=== PATIENT | female | born 1940 | race Caucasian/White ===

== ENCOUNTER → 2018-01-23 10:27 | Outpatient (CLI) | payer MEDICARE, SELFPAY ==
--- NOTE | 2018-01-23 10:40 | XR_ITS ---
XR knee RT 3V HISTORY: Right knee pain ITS.REASON: INJURY OF RT KNEE ORDERING PHYSICIAN: Nannette Ann PATIENT AGE: 77 years COMPARISON: None FINDINGS: No fracture or dislocation. No lytic or blastic change. Normal mineralization. Mild osteoarthritic changes are present involving all 3 compartments. There is slight increased density in the suprapatellar region suggesting small effusion. 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
== END ==
PROVIDERS: PCP Nurse Practitioner Family; Visit Provider Nurse Practitioner Family
DX: S89.91XA Unspecified injury of right lower leg, initial encounter (principal)
CPT/HCPCS: 73562

== ENCOUNTER → 2018-02-03 15:04 | Outpatient (CLI) | payer MEDICARE, SELFPAY ==
--- NOTE | 2018-02-03 15:08 | MR_ITS ---
MR knee RT wo con Ordering Physician: Nannette Ann Patient Age: 77 years: Female HISTORY: ITS.REASON: FLUID IN RIGHT KNEE JOINT Knee pain 2 months Prior study states Right knee injury on 01/20/2018. Knee popped when she rolled over in bed with pain developing medial side of the knee extending to the thigh and down the toes. TECHNIQUE: Multiplanar multisequence imaging on 1.5 T MR. Motion artifact degrades images particularly the coronal STIR sequence,. This limits the study somewhat COMPARISON : Right knee radiograph 01/23/2018. FINDINGS The ACL and PCL appear intact. The medial and lateral collateral ligaments intact Early degenerative arthritic changes at the knee with developing tricompartmental marginal osteophytes. . Likely some early chondral thinning, scuffing at particularly the medial femoral condyle Lateral Meniscus. ... Suspect there is a minimal superior surface tear at the anterior horn, sagittal image 8.. There is intrameniscal degenerative signal changes throughout the anterior horn as well. ... On coronal T1 images of body of the medial meniscus has a very lion appearance. The coronal. STIR images are limited but I suspect between these areas likely is a minimal free margin fraying/minor tear at the body of lateral meniscus along superior surface. .... Increased signal at the towards the posterior meniscal root region suspect for possible tear here. Sagittal slice 10 . Medial Meniscus: . No prominent findings with there are some subtle observations. ... Increased signal at superior body of medial meniscus. Likely reflecting minimal fraying or tear here but. Findings are equivocal in part due to the poor resolution due to motion.. ... Increased intrameniscal signal at the posterior horn reflecting mucoid degeneration ... Small focus of increased signal at superior surface of posterior horn near its its transition towards the posterior meniscal root. Suspect for of minimal superior surface tear posterior horn on sagittal slice 16 Moderate/generous joint effusion most evident at suprapatellar bursa. Patellofemoral joint,: normal relationships. Cartilage along posterior patella fairly well-maintained.. Only small focus of slight increased cartilage signal at mid patella suggesting small chondral irregularity here. Mild marginal osteophytes and sharpening along the margin of patella reflect early degenerative change. There are a few scattered areas of increased bone towards the inferior aspect femoral trochlear groove noted. Likely reflecting some scattered osteochondral irregularities and degenerative changes related to patellofemoral joint. Note [id number] superficial varicosities about the knee. There is some increased signal at the popliteal artery and vein. Questionable, doubtful significance. If there should be some at the lower leg lower extremity venous study may be of benefit as well IMPRESSION: ...... 1./. Moderate/generous Joint effusion most evident at suprapatellar bursa. 2.. Developing arthritic changes right knee- tricompartmental ... Likely some minor chondral thinning and scuffing most notable at medial compartment ... A few tiny osteochondral irregularities along femoral trochlear groove 3.. Suspect Small Meniscal Tears.: Most notable at lateral meniscus, with minor areas at at medial meniscus suspect as well. ... Lateral Meniscal Tear,... Most suspect involving superior surface anterior horn Also with this question with this possible displaced meniscal fragment near the anterior meniscal root, & adjacent to tibial spine, (sagittal slice 11.) Curious feature, vs possible unusually prominent anterior meniscal root Questionable area tear at the posterior meniscal root lateral meniscus and fraying at bod
== END ==
PROVIDERS: PCP Nurse Practitioner Family; Visit Provider Nurse Practitioner Family
DX: M25.461 Effusion, right knee (principal)
CPT/HCPCS: 73721

== ENCOUNTER 2020-11-17 14:05 | Inpatient (IN) | payer MEDICARE, SELFPAY ==
[2020-11-17 14:07] VITALS: BP 102/62; PULSE 78; RESP 16; TEMP 36.9; O2SAT 88; BMI 32.2
--- NOTE | 2020-11-17 14:28 | ECG_ITS ---
APPROVED REPORT Exam: Resting ECG HR:79 bpm ECG Measurements Heart Rate 79 AXES NV 130 P 4 QRSd 86 QRS -5 QT 380 T 11 QTc 435 Conclusion Normal sinus rhythm Possible Anterior infarct, age undetermined Abnormal ECG Electronically signed by : Brandon Alston, 11/18/2020 08:47:51
[2020-11-17 14:39] VITALS: BMI 32.2
--- NOTE | 2020-11-17 14:39 | XR_ITS ---
PROCEDURE: XR CHEST PORTABLE CLINICAL HISTORY: weakness, covid + COMPARISON: No exams were available for comparison FINDINGS: The cardiomediastinal silhouette and pulmonary vascularity are within normal limits. There is patchy ground-glass density in the right midlung laterally and in both lower lobes consistent with bilateral pneumonia. No effusions. No acute bony findings. No acute bony abnormalities. IMPRESSION: Bilateral pneumonia suspect Covid19 Dictated by: Ricci Shetty MD 11/17/2020 15:51 Ricci Shetty MD in [place] 11/17/2020 15:51
[2020-11-17 14:55] LABS: Chloride 94 mmol/L (98-107)
[2020-11-17 14:56] LABS: Basophils # 0.1 K/mm3 (0-0.2); Basophils % 0.8 % (0.1-2.0); Eosinophils % 0.1 % (0.1-12.0); Hematocrit 41.6 % (37.0-47.0); Hemoglobin 14.3 g/dL (12.2-16.2); Lymphocytes # 1.3 K/mm3 (0.7-4.5); Lymphocytes % 21.9 % (10-50); Mean Corpuscular HGB Conc 34.3 g/dL (31.8-35.4); Mean Corpuscular Hemoglobin 29.6 pg (27.0-31.2); Mean Corpuscular Volume 86.1 fl (81-99); Mean Platelet Volume 9.3 fl (7.4-10.4); Monocytes # 0.2 K/mm3 (0.1-1.0); Monocytes % 3.6 % (1.7-9.3); Neutrophils # 4.3 K/mm3 (1.8-7.8); Neutrophils % 73.6 % (37.0-80.0); Platelet Count 193 K/mm3 (142-424); Potassium 3.2 mmoL/L (3.5-5.1); Red Blood Count 4.83 M/mm3 (4.20-5.40); Red Cell Distribution Width 12.6 % (11.5-17.5); Sodium 130 mmol/L (136-145); White Blood Count 5.8 K/mm3 (4.8-10.8)
[2020-11-17 14:59] LABS: Alanine Aminotransferase 49 U/L (12-78); Albumin Level 4.4 g/dl (3.5-5.0); Albumin/Globulin Ratio 1.3 (1.1-1.8); Alkaline Phosphatase 72 U/L (38-126); Anion Gap 14.2 mEq/L (5-15); Aspartate Amino Transferase 88 U/L (14-36); Bilirubin,Total 0.9 mg/dl (0.2-1.3); Blood Urea Nitrogen 38 mg/dl (7-17); Calcium 8.9 mg/dl (8.4-10.2); Carbon Dioxide 25 mmol/L (22.0-30.0); Creatinine Clearance Estimated 43 mL/min (50-200); Estimated Glomerular Filt Rate 43 ml/min (>60); GFR (African American) 52 ML/MIN (>60); Globulin 3.5 g/dL (1.3-3.2); Glucose 144 mg/dl (74-100); Total Protein,Serum 7.9 g/dl (6.3-8.2)
[2020-11-17 15:00] VITALS: BP 126/74; PULSE 71; RESP 18; O2SAT 97
[2020-11-17 15:01] LABS: ABG Base Excess 0.7 mmol/L (-2.4-2.3); ABG Oxygen Saturation 92 % (90-100); ABG PCO2 31.8 mmhg (35.0-45.0); ABG PO2 59.9 mmhg (80-100); ABG TCO2 24.9 mmhg (23-27)
[2020-11-17 15:03] LABS: Allen's Test Acceptable; Oxygen Room Air %; Source Right Radial
[2020-11-17 15:11] LABS: Troponin I 0.02 ng/ml (0.00-0.034)
[2020-11-17 16:37] LABS: Lactic Acid 1.7 mmol/L (0.7-2.1)
--- NOTE | 2020-11-17 17:31 | HMH.EDGENADL ---
ED Disposition Clinical Impression: Pneumonia due to COVID-19 virus Disposition: Admitted As Inpatient Condition on Discharge: Fair Referrals: Yasmany Carrera MD [Primary Care Provider] - Time of Disposition: 17:44 - Critical Care Critical Care Time: No Attestation: On 11/17/20, the high probability of a clinically significant, sudden or life threatening deterioration of the following system(s) required my full and direct attention, intervention and personal management. The time I documented below is in addition to time spent performing reported procedures but includes the following listed in this critical care notation. Medical Decision Making - Medical Records Medical records reviewed: Yes: I reviewed the patient's medical records. MR Comment: Shows bilateral pneumonia consistent with the Covid electrolytes are essentially within normal limits CBC is within normal limits ABG shows PO2 59.2 other findings are essentially normal lactic acid is 1.7 oxygen saturation on arrival was 88% with 3 L it goes up to 97% spoke to Dr. Brandon Zhang he has advised that the patient may be admitted and be put on dexamethasone remdesivir vitamin D and IV fluids - Oscar Inquiry Pt receiving controlled substance: No Vital Signs: 11/17/20 14:07 11/17/20 15:00 Temperature 98.4 F Temperature Source Oral Pulse Rate 71 Pulse Rate [Right Radial] 78 Respiratory Rate 16 18 Blood Pressure 126/74 Blood Pressure [Right Arm] 102/62 L Blood Pressure Mean [Right Arm] 75 Blood Pressure Source [Right Arm] Automatic Cuff Blood Pressure Position [Right Arm] Sitting 02 Sat by Pulse Oximetry 88 L 97 Oxygen Delivery Method Room Air Nasal Cannula Oxygen Flow Rate (LPM) 2 - Lab Data Lab results reviewed: Yes: I reviewed the patient's lab results. Lab Results 11/17/20 14:35: WBC 5.8, RBC 4.83, Hgb 14.3, Hct 41.6, MCV 86.1, MCH 29.6, MCHC 34.3, RDW 12.6, Plt Count 193, MPV 9.3, Neut % (Auto) 73.6, Lymph % (Auto) 21.9, [place] % (Auto) 3.6, Eos % (Auto) 0.1, Baso % (Auto) 0.8, Neut # (Auto) 4.3, Lymph # (Auto) 1.3, [place] # (Auto) 0.2, Eos # (Auto) 0.0, Baso # (Auto) 0.1 11/17/20 14:35: Sodium 130 L, Potassium 3.2 L, Chloride 94 L, Carbon Dioxide 25, Anion Gap 14.2, BUN 38 H, Creatinine 1.20 H, Estimated Creat Clear 43, Estimated GFR 43 L, Est GFR ( Amer) 52 L, Glucose 144 H, Calcium 8.9, Total Bilirubin 0.9, AST 88 H, ALT 49, Alkaline Phosphatase 72, Troponin I 0.02, Total Protein 7.9, Albumin 4.4, Globulin 3.5 H, Albumin/Globulin Ratio 1.3 11/17/20 14:35: Lactate 1.7 11/17/20 14:39: Specimen Source Right radial, O2 % Room air, ABG pH 7.50 H, ABG pCO2 31.8 L, ABG pO2 59.9 L, ABG HCO3 24.0, ABG Total CO2 24.9, ABG O2 Saturation 92, ABG Base Excess 0.7, Ricci Test Acceptable Result diagrams: 11/17/20 14:35 11/17/20 14:35 Orders (Tests/Meds): ORDERS Category Date Time Status Covid-19 Nasal PCR ([facility]) Routine Lab 11/17/20 15:10 Received Troponin I Q3H Lab 11/17/20 17:45 Ordered Troponin I Q3H Lab 11/17/20 20:45 Ordered Blood Culture Stat Micro 11/17/20 14:35 Received General Adult HPI - General Chief complaint: Weakness Stated complaint: Covid+, weakness Time Seen by Provider: 11/17/20 14:31 Mode of Arrival: Ambulatory Source of Information: Patient Limitations: No Limitations Description of Symptoms (Recalled from ER Triage Doc. by RN): Pt reports tested positive for covid 19 on tuesday of last week. Presents today c/o generalized weakness. Pt denies SOA. - History of Present Illness HPI narrative: female here with her daughter with a complaint that she was feeling tired and oxygen saturation was dropping she has recently been diagnosed with Covid pneumonia her past medical history significant for hypertension hypercholesterolemia otherwise she does well according to her daughter MD complaint: hypoxemia Onset (ago): hour(s) Severity: moderate Severity scale (1-10): 3 Consistency: constant Exacerbati
--- NOTE | 2020-11-17 17:43 | PC.NURSE ---
Called soda dry house operator for a bed, she advised we will have to board pt till at least 7 .
[2020-11-17 19:00] VITALS: BP 166/92; PULSE 84; O2SAT 95
[2020-11-17 20:02] VITALS: BP 156/90; PULSE 84; O2SAT 93
[2020-11-17 21:16] VITALS: BP 146/68; PULSE 83; RESP 20; TEMP 36.8; O2SAT 93
[2020-11-17 22:00] VITALS: O2SAT 92
[2020-11-17 22:12] LABS: Alanine Aminotransferase 42 U/L (12-78); Albumin Level 3.8 g/dl (3.5-5.0); Albumin/Globulin Ratio 1.3 (1.1-1.8); Alkaline Phosphatase 73 U/L (38-126); Anion Gap 10.6 mEq/L (5-15); Aspartate Amino Transferase 65 U/L (14-36); Bilirubin,Total 0.7 mg/dl (0.2-1.3); Blood Urea Nitrogen 27 mg/dl (7-17); Calcium 8.5 mg/dl (8.4-10.2); Carbon Dioxide 27 mmol/L (22.0-30.0); Chloride 98 mmol/L (98-107); Creatinine Clearance Estimated 51 mL/min (50-200); Estimated Glomerular Filt Rate 53 ml/min (>60); GFR (African American) 64 ML/MIN (>60); Glucose 142 mg/dl (74-100); Sodium 133 mmol/L (136-145); Total Protein,Serum 6.8 g/dl (6.3-8.2)
[2020-11-17 22:20] LABS: Potassium 2.6 mmoL/L (3.5-5.1)
--- NOTE | 2020-11-17 23:10 | PC.NURSE ---
2212 paged second grade teacher [address] Zhang new orders received.
[2020-11-18] VITALS: BP 111/65; PULSE 85; RESP 18; O2SAT 93
--- NOTE | 2020-11-18 04:40 | PC.NURSE ---
shift summary pts lung sounds are diminished with sats maintained 90% or above on 2lpm via NC. pt is aert and oriented X4. pt is able to stand and take a few steps to the bedside commode with assist X1. pt denies nausea, vomiting, diarrhea, or any SOB.
[2020-11-18 06:10] LABS: Basophils # 0.1 K/mm3 (0-0.2); Eosinophils % 0.1 % (0.1-12.0); Hematocrit 38.4 % (37.0-47.0); Hemoglobin 13.2 g/dL (12.2-16.2); Lymphocytes # 1.2 K/mm3 (0.7-4.5); Lymphocytes % 19.7 % (10-50); Mean Corpuscular HGB Conc 34.4 g/dL (31.8-35.4); Mean Corpuscular Hemoglobin 29.5 pg (27.0-31.2); Mean Corpuscular Volume 85.6 fl (81-99); Mean Platelet Volume 8.3 fl (7.4-10.4); Monocytes # 0.2 K/mm3 (0.1-1.0); Monocytes % 3.3 % (1.7-9.3); Neutrophils # 4.7 K/mm3 (1.8-7.8); Neutrophils % 75.8 % (37.0-80.0); Platelet Count 195 K/mm3 (142-424); Red Blood Count 4.48 M/mm3 (4.20-5.40); Red Cell Distribution Width 12.8 % (11.5-17.5); White Blood Count 6.2 K/mm3 (4.8-10.8)
[2020-11-18 06:19] LABS: Alanine Aminotransferase 43 U/L (12-78); Albumin Level 3.8 g/dl (3.5-5.0); Albumin/Globulin Ratio 1.2 (1.1-1.8); Alkaline Phosphatase 70 U/L (38-126); Anion Gap 11.1 mEq/L (5-15); Aspartate Amino Transferase 63 U/L (14-36); Bilirubin,Total 0.6 mg/dl (0.2-1.3); Blood Urea Nitrogen 20 mg/dl (7-17); Calcium 8.6 mg/dl (8.4-10.2); Carbon Dioxide 28 mmol/L (22.0-30.0); Chloride 99 mmol/L (98-107); Creatinine Clearance Estimated 51 mL/min (50-200); Estimated Glomerular Filt Rate 53 ml/min (>60); GFR (African American) 64 ML/MIN (>60); Globulin 3.1 g/dL (1.3-3.2); Glucose 133 mg/dl (74-100); Potassium 3.1 mmoL/L (3.5-5.1); Sodium 135 mmol/L (136-145); Total Protein,Serum 6.9 g/dl (6.3-8.2)
--- NOTE | 2020-11-18 06:57 | HMH.HP ---
*Admission Date: 11/17/20 *Chief complaint: Weakness *History of present illness: 80-year-old female presented to the emergency department last night with a known diagnosis of COVID-19 infection. Last Tuesday patient developed diarrhea. On Tuesday it was discovered that she had had a close contact who tested positive for Covid and she herself was advised to get tested. Patient was tested at the [facility]. Patient's test was positive. Her diarrhea persisted and she became more weak. She denies any respiratory symptoms although nurse notes coughing overnight. Her weakness progressed to the point where she sought treatment at the emergency department. In the emergency department the patient was found to be hypoxic which responded well to application of oxygen via nasal cannula. Chest x-ray confirmed the presence of infiltrates. The patient was also hypokalemic. Decision was made to admit the patient for treatment of COVID-19 pneumonia and respiratory failure. This morning the patient requests discharge to home despite her continued weakness. Nursing staff reports patient required 1 person assist for transfers [facility] History I have reviewed the patient's past medical history: Yes Medical History: Reports:: Hyperlipidemia, Hypertension *Have you ever received a pneumonia vaccine?: No *Have you received a flu vaccine this season?: No Other Surgeries: Yes: Other (Left hip fracture repair) - *Social History Alcohol Intake: never *Occupational Status:: disabled *Travel in the last 8 weeks: None Family Hx:: Non-contributory Review of Systems - Constitutional Denies anorexia - Eyes Denies blind spots - ENT Denies abnormal hearing - *Cardiovascular Denies chest pain - *Respiratory Denies change in phlegm color, Denies chest congestion, Denies cough, Denies shortness of breath - *Gastrointestinal Denies abdominal pain - *Genitourinary Denies painful urination - *Musculoskeletal Denies abnormal walking - *Neurologic Denies abnormal walking Meds Home Medications Medication Instructions Recorded Confirmed Type Atorvastatin Calcium [Lipitor 40mg 40 mg PO DAILY 11/17/20 11/18/20 History Tab] Benazepril HCl 10 mg PO DAILY 11/17/20 11/18/20 History hydroCHLOROthiazide [HCTZ 25mg 25 mg PO DAILY 11/17/20 11/18/20 History tab] Allergies Allergy/AdvReac Type Severity Reaction Status Date / Time No Known Allergies Allergy Unverified 11/18/20 07:20 Exam Vital signs and Labs for Last 24 Hours: Temp Pulse Resp BP Pulse Ox 98.2 F 85 18 111/65 93 L 11/17/20 21:16 11/18/20 00:00 11/18/20 00:00 11/18/20 00:00 11/18/20 00:00 Laboratory Results - last 24 hr 11/17/20 14:35: WBC 5.8, RBC 4.83, Hgb 14.3, Hct 41.6, MCV 86.1, MCH 29.6, MCHC 34.3, RDW 12.6, Plt Count 193, MPV 9.3, Neut % (Auto) 73.6, Lymph % (Auto) 21.9, [place] % (Auto) 3.6, Eos % (Auto) 0.1, Baso % (Auto) 0.8, Neut # (Auto) 4.3, Lymph # (Auto) 1.3, [place] # (Auto) 0.2, Eos # (Auto) 0.0, Baso # (Auto) 0.1 11/17/20 14:35: Sodium 130 L, Potassium 3.2 L, Chloride 94 L, Carbon Dioxide 25, Anion Gap 14.2, BUN 38 H, Creatinine 1.20 H, Estimated Creat Clear 43, Estimated GFR 43 L, Est GFR ( Amer) 52 L, Glucose 144 H, Calcium 8.9, Total Bilirubin 0.9, AST 88 H, ALT 49, Alkaline Phosphatase 72, Troponin I 0.02, Total Protein 7.9, Albumin 4.4, Globulin 3.5 H, Albumin/Globulin Ratio 1.3 11/17/20 14:35: Lactate 1.7 11/17/20 14:39: Specimen Source Right radial, O2 % Room air, ABG pH 7.50 H, ABG pCO2 31.8 L, ABG pO2 59.9 L, ABG HCO3 24.0, ABG Total CO2 24.9, ABG O2 Saturation 92, ABG Base Excess 0.7, Ricci Test Acceptable 11/17/20 22:00: Sodium 133 L, Potassium 2.6 L*, Chloride 98, Carbon Dioxide 27, Anion Gap 10.6, BUN 27 H D, Creatinine 1.00, Estimated Creat Clear 51, Estimated GFR 53 L, Est GFR ( Amer) 64 D, Glucose 142 H, Calcium 8.5, Total Bilirubin 0.7, AST 65 H D, ALT 42, Alkaline Phosphatase 73, Total P
--- NOTE | 2020-11-18 07:34 | P.CONPHA_ITS ---
[facility] Pharmacy VTE Monitoring - Patient Demographics Admission date: 11/17/20 Report Date: 11/18/20 Time: 07:34 Allergies/Adverse Reactions: Patient Allergies No Known Allergies Allergy (Unverified 11/18/20 07:20) Height: 1.52 m Weight: 74.843 kg Patient Problems: Current Active Problems Pneumonia due to COVID-19 virus (Acute) Essential hypertension (Acute) Hypercholesterolemia (Acute) Acute respiratory failure with hypoxia (Acute) - VTE Risk Labs: VTE Related Lab Results Hgb 13.2 g/dL (12.2-16.2) 11/18/20 05:40 Hct 38.4 % (37.0-47.0) 11/18/20 05:40 Plt Count 195 K/mm3 (142-424) 11/18/20 05:40 BUN 20 mg/dl (7-17) H D 11/18/20 05:40 Creatinine 1.00 mg/dl (0.52-1.04) 11/18/20 05:40 Estimated Creat Clear 51 mL/min (50-200) 11/18/20 05:40 - Prophylaxis VTE Prophylaxis Ordered?: Yes Types of VTE Prophylaxis: IPCS Thigh High, Pharmacological Location of Applied Device: Bilateral Lower Extremeties Pharmacologic Type: Enoxaparin
[2020-11-18 08:00] VITALS: BP 123/66; PULSE 88; RESP 18; TEMP 36.9; O2SAT 90
--- NOTE | 2020-11-18 11:07 | HMH.PHAINT ---
MEDICATION RECONCILIATION COMPLETED ON PATIENT USING EXTERNAL FILL HISTORY FROM PHARMACY. -TASNEEM MAYO, JEAND
[2020-11-18 12:00] VITALS: BP 122/76; PULSE 80; RESP 17; TEMP 37; O2SAT 93
[2020-11-18 12:15] LABS: Procalcitonin 0.188 ng/mL (0.0-2.0)
[2020-11-18 15:28] VITALS: BP 131/83; PULSE 96; RESP 20; TEMP 36.6; O2SAT 90
--- NOTE | 2020-11-18 16:12 | PC.NURSE ---
PT HAS DONE WELL TODAY. SHE IS A&OX4. SHE IS ON 3LNC, O2 SAT HAS REMAINED ABOVE 90%. PT HAS NOT C/O ANY PAIN, N/V, OR SOB. SHE HAD ONE EPISODE OF LOOSE STOOL THIS SHIFT. SHE IS A ONE ASSIST TO BSC. SHE HAS A 20G IN THE RAC WITH NS @ 75ML/HR PER CURRENT ORDER. VSS. CALL LIGHT WITHIN REACH. WILL CONT. TO MONITOR.
[2020-11-18 20:00] VITALS: BP 112/63; PULSE 80; RESP 20; TEMP 36.3; O2SAT 93
[2020-11-18 23:44] VITALS: BP 126/75; PULSE 82; RESP 20; TEMP 36.6; O2SAT 91
[2020-11-19 04:00] VITALS: BP 135/85; PULSE 80; RESP 18; TEMP 36.6; O2SAT 91
--- NOTE | 2020-11-19 04:14 | PC.NURSE ---
pt still on 3LNC. ambulates with assist. pt has had bm x1 this shift. pt has been restless at times and c/o of aching. prn med given. iv patent. call light in reach. vss. will continue to monitor
[2020-11-19 05:21] VITALS: BMI 28.3
[2020-11-19 06:23] LABS: Alanine Aminotransferase 37 U/L (12-78); Albumin Level 3.4 g/dl (3.5-5.0); Albumin/Globulin Ratio 1.1 (1.1-1.8); Alkaline Phosphatase 63 U/L (38-126); Anion Gap 9.2 mEq/L (5-15); Aspartate Amino Transferase 55 U/L (14-36); Bilirubin,Total 0.5 mg/dl (0.2-1.3); Blood Urea Nitrogen 19 mg/dl (7-17); Calcium 8.7 mg/dl (8.4-10.2); Carbon Dioxide 25 mmol/L (22.0-30.0); Chloride 107 mmol/L (98-107); Creatinine Clearance Estimated 45 mL/min (50-200); Estimated Glomerular Filt Rate 69 ml/min (>60); GFR (African American) 83 ML/MIN (>60); Globulin 3.1 g/dL (1.3-3.2); Glucose 129 mg/dl (74-100); Potassium 4.2 mmoL/L (3.5-5.1); Sodium 137 mmol/L (136-145); Total Protein,Serum 6.5 g/dl (6.3-8.2)
[2020-11-19 06:30] LABS: Basophils # 0.1 K/mm3 (0-0.2); Basophils % 0.9 % (0.1-2.0); Hematocrit 36.9 % (37.0-47.0); Lymphocytes # 1.5 K/mm3 (0.7-4.5); Lymphocytes % 24.4 % (10-50); Mean Corpuscular HGB Conc 35.2 g/dL (31.8-35.4); Mean Corpuscular Hemoglobin 29.5 pg (27.0-31.2); Mean Corpuscular Volume 83.9 fl (81-99); Monocytes # 0.4 K/mm3 (0.1-1.0); Monocytes % 6.3 % (1.7-9.3); Neutrophils # 4.3 K/mm3 (1.8-7.8); Neutrophils % 68.4 % (37.0-80.0); Platelet Count 242 K/mm3 (142-424); Red Cell Distribution Width 12.9 % (11.5-17.5); White Blood Count 6.2 K/mm3 (4.8-10.8)
[2020-11-19 06:39] LABS: Procalcitonin 0.177 ng/mL (0.0-2.0)
--- NOTE | 2020-11-19 07:12 | HMH.ACPN2 ---
Internal Medicine - PN: Subj *Date: 11/19/20 *Time: 07:12 Interval history: Patient reports feeling better this morning. No acute events in the last 24 hours. Patient is remained stable per nursing staff. Exam Vital signs and Labs for Last 24 Hours: Temp Pulse Resp BP Pulse Ox 97.9 F 80 18 135/85 91 L 11/19/20 04:00 11/19/20 04:00 11/19/20 04:00 11/19/20 04:00 11/19/20 04:00 Laboratory Results - last 24 hr 11/18/20 05:40: Procalcitonin 0.188 11/19/20 05:35: Sodium 137, Potassium 4.2 D, Chloride 107, Carbon Dioxide 25, Anion Gap 9.2, BUN 19 H, Creatinine 0.80, Estimated Creat Clear 45, Estimated GFR 69, Est GFR ( Amer) 83 D, Glucose 129 H, Calcium 8.7, Total Bilirubin 0.5, AST 55 H, ALT 37, Alkaline Phosphatase 63, Total Protein 6.5, Albumin 3.4 L D, Globulin 3.1, Albumin/Globulin Ratio 1.1 11/19/20 05:35: WBC 6.2, RBC 4.40, Hgb 13.0, Hct 36.9 L, MCV 83.9, MCH 29.5, MCHC 35.2, RDW 12.9, Plt Count 242, MPV 8.0, Neut % (Auto) 68.4, Lymph % (Auto) 24.4, [place] % (Auto) 6.3, Eos % (Auto) 0.0 L, Baso % (Auto) 0.9, Neut # (Auto) 4.3, Lymph # (Auto) 1.5, [place] # (Auto) 0.4, Eos # (Auto) 0.0, Baso # (Auto) 0.1 11/19/20 05:35: Procalcitonin 0.177 I & O for Last 24 hours: Intake & Output 11/16/20 11/17/20 11/18/20 11/19/20 11:59 11:59 11:59 11:59 Intake Total 1320 / 1680 1560 / 1560 Output Total 200 / 200 0 / 0 Balance 1120 / 1480 1560 / 1560 Weight 165 lb 144 lb 4 oz - Constitutional no acute distress - *Routine Respiratory Exam Present: CTA bilaterally - *Routine Cardiovascular Exam Present: RRR - *Routine Abdominal Exam Present: soft, normoactive bowel sounds. Absent: tenderness Assessment and Plan (1) Acute respiratory failure with hypoxia Status: Acute Category: Medical Code(s): J96.01 - Acute respiratory failure with hypoxia (2) Pneumonia due to COVID-19 virus Status: Acute Category: Medical Code(s): U07.1 - COVID-19; J12.82 - Pneumonia due to coronavirus disease 2019 (3) Essential hypertension Status: Acute Category: Medical Code(s): I10 - Essential (primary) hypertension (4) Hypercholesterolemia Status: Acute Category: Medical Code(s): E78.00 - Pure hypercholesterolemia, unspecified - Assessment and plan all Dx Assessment and Plan for all problems:: 1. Continue treatment for COVID-19 pneumonia with Remdesivir and dexamethasone 2. Encourage patient ambulate 3. Incentive spirometry to increase pulmonary toilet.
[2020-11-19 08:00] VITALS: BP 139/75; PULSE 77; RESP 18; TEMP 36.8; O2SAT 91
[2020-11-19 09:09] VITALS: BMI 28.1
[2020-11-19 11:50] VITALS: BP 133/82; PULSE 84; RESP 18; TEMP 36.4; O2SAT 91
--- NOTE | 2020-11-19 14:39 | HMH.PTEV ---
Physical Therapy Evaluation Rehab PT IP Evaluation Start: 11/19/20 12:07 Freq: ONCE Status: Active Protocol: Document 11/19/20 14:35 FAREED (Rec: 11/19/20 14:39 FRAEED [id number]) Subjective/History History History 80-year-old female presented to the emergency department last night with a known diagnosis of COVID-19 infection. Last Tuesday patient developed diarrhea. On Tuesday it was discovered that she had had a close contact who tested positive for Covid and she herself was advised to get tested. Patient was tested at the [facility] . Patient's test was positive . Her diarrhea persisted and she became more weak. She denies any respiratory symptoms although nurse notes coughing overnight. Her weakness progressed to the point where she sought treatment at the emergency department. In the emergency department the patient was found to be hypoxic which responded well to application of oxygen via nasal cannula. Chest x-ray confirmed the presence of infiltrates. The patient was also hypokalemic. Decision was made to admit the patient for treatment of COVID-19 pneumonia and respiratory failure. copied from H&P from Subjective Subjective Pt reports she has no troubles getting around but apologizes for coughing on you Rehab PT IP Eval Objective Appearance Patient Behavior Appropriate,Cooperative Patient Orientation Person,Place,Time Difficulty following instructions none Speech Pattern Clear,Appropriate Ambulation Patient Able to Ambulate Yes Ambulation Observation IP General Gait Pattern Observation Shuffling Step Ambulation Distance (feet) 10 Ambulation Assistive Device None Ambulatio
--- NOTE | 2020-11-19 16:49 | PC.NURSE ---
Assumed care of this pt @ [id number]
[2020-11-19 18:38] VITALS: O2SAT 90
[2020-11-20] VITALS (10 sets, daily range): BP systolic 130–175; BP diastolic 80–97; PULSE 65–87; RESP 16–24; TEMP 36.4–36.9; O2SAT 90–94; BMI 28.2
--- NOTE | 2020-11-20 03:30 | PC.NURSE ---
no acute changes. pt able to get up to bsc with standby assistance. 3LNC in use at this time with o2 sat 92%. vss. slept most of shift. did have some intermittent coughing. call light in reach. will continue to monitor
[2020-11-20 07:08] LABS: Basophils % 0.6 % (0.1-2.0); Hematocrit 37.6 % (37.0-47.0); Hemoglobin 12.7 g/dL (12.2-16.2); Lymphocytes # 1.4 K/mm3 (0.7-4.5); Lymphocytes % 18.2 % (10-50); Mean Corpuscular HGB Conc 33.7 g/dL (31.8-35.4); Mean Corpuscular Hemoglobin 29.5 pg (27.0-31.2); Mean Corpuscular Volume 87.5 fl (81-99); Mean Platelet Volume 8.9 fl (7.4-10.4); Monocytes # 0.5 K/mm3 (0.1-1.0); Monocytes % 7.1 % (1.7-9.3); Neutrophils # 5.7 K/mm3 (1.8-7.8); Neutrophils % 74.1 % (37.0-80.0); Platelet Count 309 K/mm3 (142-424); Red Cell Distribution Width 12.8 % (11.5-17.5); White Blood Count 7.7 K/mm3 (4.8-10.8)
--- NOTE | 2020-11-20 07:12 | HMH.ACPN2 ---
Internal Medicine - PN: Subj *Date: 11/20/20 *Time: 07:12 Interval history: No acute events overnight. O2 sats remained in the low to mid 90s on 3 L of oxygen. Patient believes she is well enough to go home. She denies shortness of breath, even with ambulation. Nursing staff reports decline in O2 sats with ambulation. Exam Vital signs and Labs for Last 24 Hours: Temp Pulse Resp BP Pulse Ox 98.5 F 75 22 156/83 H 92 L 11/20/20 04:00 11/20/20 04:00 11/20/20 04:00 11/20/20 04:00 11/20/20 04:00 I & O for Last 24 hours: Intake & Output 11/17/20 11/18/20 11/19/20 11/20/20 11:59 11:59 11:59 11:59 Intake Total 1320 / 1680 2039 / 2039 2174 / 2174 Output Total 200 / 200 0 / 0 501 / 501 Balance 1120 / 1480 2039 / 2039 1673 / 1673 Weight 165 lb 143 lb 4.807 oz 144 lb 9 oz Microbiology Reports for the Last 24 Hours: Microbiology 11/17/20 14:35 Blood Blood Culture - Preliminary NO GROWTH AFTER 48 HOURS 11/17/20 14:35 Blood Blood Culture - Preliminary NO GROWTH AFTER 48 HOURS Narrative: Patient appears comfortable in bed with no increased work of breathing. Lungs have bibasilar rales and rhonchi. Heart has a regular rate and rhythm. Abdomen is soft. Lower extremities have no edema. Assessment and Plan (1) Acute respiratory failure with hypoxia Status: Acute Category: Medical Code(s): J96.01 - Acute respiratory failure with hypoxia (2) Pneumonia due to COVID-19 virus Status: Acute Category: Medical Code(s): U07.1 - COVID-19; J12.82 - Pneumonia due to coronavirus disease 2019 (3) Essential hypertension Status: Acute Category: Medical Code(s): I10 - Essential (primary) hypertension (4) Hypercholesterolemia Status: Acute Category: Medical Code(s): E78.00 - Pure hypercholesterolemia, unspecified - Assessment and plan all Dx Assessment and Plan for all problems:: 1. DC IV fluids. Continue oxygen support. Patient will ambulate as much as possible today. If she can maintain O2 sats above 90% on 2 to 3 L over the next 24 hours with increased activity consideration will be given to discharge tomorrow
[2020-11-20 07:25] LABS: Alanine Aminotransferase 38 U/L (12-78); Albumin Level 3.4 g/dl (3.5-5.0); Albumin/Globulin Ratio 1.1 (1.1-1.8); Alkaline Phosphatase 63 U/L (38-126); Anion Gap 9.7 mEq/L (5-15); Aspartate Amino Transferase 52 U/L (14-36); Bilirubin,Total 0.5 mg/dl (0.2-1.3); Blood Urea Nitrogen 23 mg/dl (7-17); Calcium 8.7 mg/dl (8.4-10.2); Carbon Dioxide 24 mmol/L (22.0-30.0); Chloride 110 mmol/L (98-107); Creatinine Clearance Estimated 45 mL/min (50-200); Estimated Glomerular Filt Rate 69 ml/min (>60); GFR (African American) 83 ML/MIN (>60); Globulin 3.1 g/dL (1.3-3.2); Glucose 120 mg/dl (74-100); Potassium 4.7 mmoL/L (3.5-5.1); Sodium 139 mmol/L (136-145); Total Protein,Serum 6.5 g/dl (6.3-8.2)
--- NOTE | 2020-11-20 11:34 | PC.NURSE ---
Pt tolerates activity well. She does desat to mid-high 80's and will recover to low 90's w/in about 10 minutes. While ambulating in room pt does not appear to be in any resp distress. Pt denies being SOA during this time as well.
--- NOTE | 2020-11-20 16:06 | PC.NURSE ---
No acute changes this shift. Remains on 2 L O2 per nasal cannula. Lungs diminished TO. HR regular. Abdomen soft, non-tender w/active BS. Has had multiple loose stools this shift. Voiding w/o difficulty. Is independent w/ care. Calls out appropriately. PO intake poor this shift, stating she does not have much of an appetite. Protiein shakes offered to pt or substitution of different food. No needs voiced. She has been on the phone w/ family this shift. Call mookie w/in reach.
[2020-11-21 03:45] VITALS: BP 163/98; PULSE 67; RESP 16; TEMP 36.4; O2SAT 91
--- NOTE | 2020-11-21 03:49 | PC.NURSE ---
NO acute changes overnight. PT has rested well this shift. Lungs diminished, on 2L NC tolerating well, sats 92-94. Pt has been getting up to BSC with standby assist, tolerating well. No c/o SOA or pain this shift. Pt has been independent with care. IV patent, SL. VSS, call light in reach, no concerns at this time.
[2020-11-21 05:00] VITALS: BMI 28.3
[2020-11-21 06:22] LABS: Basophils # 0.1 K/mm3 (0-0.2); Basophils % 0.5 % (0.1-2.0); Eosinophils % 0.1 % (0.1-12.0); Hematocrit 39.4 % (37.0-47.0); Hemoglobin 13.5 g/dL (12.2-16.2); Lymphocytes # 1.5 K/mm3 (0.7-4.5); Lymphocytes % 16.5 % (10-50); Mean Corpuscular HGB Conc 34.2 g/dL (31.8-35.4); Mean Corpuscular Hemoglobin 29.6 pg (27.0-31.2); Mean Corpuscular Volume 86.6 fl (81-99); Mean Platelet Volume 8.6 fl (7.4-10.4); Monocytes # 0.6 K/mm3 (0.1-1.0); Neutrophils # 7.1 K/mm3 (1.8-7.8); Platelet Count 369 K/mm3 (142-424); Red Blood Count 4.55 M/mm3 (4.20-5.40); Red Cell Distribution Width 12.6 % (11.5-17.5); White Blood Count 9.2 K/mm3 (4.8-10.8)
[2020-11-21 06:32] LABS: Alanine Aminotransferase 56 U/L (12-78); Albumin Level 3.6 g/dl (3.5-5.0); Albumin/Globulin Ratio 1.1 (1.1-1.8); Alkaline Phosphatase 72 U/L (38-126); Anion Gap 12.9 mEq/L (5-15); Aspartate Amino Transferase 87 U/L (14-36); Bilirubin,Total 0.5 mg/dl (0.2-1.3); Blood Urea Nitrogen 21 mg/dl (7-17); Calcium 8.9 mg/dl (8.4-10.2); Carbon Dioxide 20 mmol/L (22.0-30.0); Chloride 110 mmol/L (98-107); Creatinine Clearance Estimated 45 mL/min (50-200); Estimated Glomerular Filt Rate 80 ml/min (>60); GFR (African American) 97 ML/MIN (>60); Globulin 3.2 g/dL (1.3-3.2); Glucose 121 mg/dl (74-100); Potassium 4.9 mmoL/L (3.5-5.1); Sodium 138 mmol/L (136-145); Total Protein,Serum 6.8 g/dl (6.3-8.2)
--- NOTE | 2020-11-21 07:11 | HMH.DCSUM ---
General - General Admission date:: 11/17/20 Discharge date: 11/21/20 HPI HPI: 80-year-old female presented to the emergency department last night with a known diagnosis of COVID-19 infection. Last Tuesday patient developed diarrhea. On Tuesday it was discovered that she had had a close contact who tested positive for Covid and she herself was advised to get tested. Patient was tested at the [facility]. Patient's test was positive. Her diarrhea persisted and she became more weak. She denies any respiratory symptoms although nurse notes coughing overnight. Her weakness progressed to the point where she sought treatment at the emergency department. In the emergency department the patient was found to be hypoxic which responded well to application of oxygen via nasal cannula. Chest x-ray confirmed the presence of infiltrates. The patient was also hypokalemic. Decision was made to admit the patient for treatment of COVID-19 pneumonia and respiratory failure. This morning the patient requests discharge to home despite her continued weakness. Nursing staff reports patient required 1 person assist for transfers Hospital Course Hospital Course: Patient was admitted with diagnosis of COVID-19 pneumonia and started on supplemental oxygen, Remdesivir, dexamethasone, nutritional supplementation with vitamin D, vitamin C and zinc. Patient remained stable during hospitalization with O2 sats in the low to mid 90s on 2 to 3 L of oxygen via the nasal cannula. Lung exam did have rales and rhonchi that improved during hospitalization and on the day of discharge patient only had faint rhonchi's in the bases. As hospitalization progressed physical therapy was consulted and patient did well with physical therapy and nursing staff reported the day prior to discharge patient was independent in her room. By November 21 patient was remaining stable with stable O2 sats, appropriate level of activity, good appetite and patient was denying weakness. Patient was discharged home. She will continue home oxygen. Patient will be discharged on continued steroids. Patient will follow-up in the office in 1 week Objective Vital signs: Temp Pulse Resp BP Pulse Ox 97.5 F L 67 16 163/98 H 91 L 11/21/20 03:45 11/21/20 03:45 11/21/20 03:45 11/21/20 03:45 11/21/20 03:45 no acute distress - *Routine Neck Exam Present: supple - *Routine Respiratory Exam Present: rhonchi - *Routine Cardiovascular Exam Present: RRR, Normal S1, Normal S2 - *Routine Abdominal Exam Present: soft, normoactive bowel sounds. Absent: tenderness - *Routine Extremities Exam Absent: edema Results Labs on day of discharge: Labs from last 24 hours 11/21/20 11/21/20 11/20/20 05:30 05:30 05:53 WBC 9.2 7.7 RBC 4.55 4.30 Hgb 13.5 12.7 Hct 39.4 37.6 MCV 86.6 87.5 MCH 29.6 29.5 MCHC 34.2 33.7 RDW 12.6 12.8 Plt Count 369 309 D MPV 8.6 8.9 Neut % (Auto) 77.0 74.1 Lymph % (Auto) 16.5 18.2 Edwards % (Auto) 6.0 7.1 Eos % (Auto) 0.1 0.0 L Baso % (Auto) 0.5 0.6 Neut # (Auto) 7.1 5.7 Lymph # (Auto) 1.5 1.4 Edwards # (Auto) 0.6 0.5 Eos # (Auto) 0.0 0.0 Baso # (Auto) 0.1 0.0 Sodium 138 Potassium 4.9 Chloride 110 H Carbon Dioxide 20 L Anion Gap 12.9 BUN 21 H Creatinine 0.70 Estimated Creat Clear 45 Estimated GFR 80 Est GFR ( Amer) 97 Glucose 121 H Calcium 8.9 Total Bilirubin 0.5 AST 87 H D ALT 56 D Alkaline Phosphatase 72 Total Protein 6.8 Albumin 3.6 Globulin 3.2 Albumin/Globulin Ratio 1.1 11/20/20 05:53 WBC RBC Hgb Hct MCV MCH MCHC RDW Plt Count MPV Neut % (Auto) Lymph % (Auto) Edwards % (Auto) Eos % (Auto) Baso % (Auto) Neut # (Auto) Lymph # (Auto) Edwards # (Auto) Eos # (Auto) Baso # (Auto) Sodium 139 Potassium 4.7 Chloride 110 H Carbon Dioxide 24 Anion Gap 9
--- NOTE | 2020-11-21 07:53 | HMH.ACPN ---
Internal Medicine - PN: Subj *Date: 11/21/20 *Time: 07:53 Exam Vital signs and Labs for Last 24 Hours: Temp Pulse Resp BP Pulse Ox 97.5 F L 67 16 163/98 H 91 L 11/21/20 03:45 11/21/20 03:45 11/21/20 03:45 11/21/20 03:45 11/21/20 03:45 Laboratory Results - last 24 hr 11/21/20 05:30: Sodium 138, Potassium 4.9, Chloride 110 H, Carbon Dioxide 20 L, Anion Gap 12.9, BUN 21 H, Creatinine 0.70, Estimated Creat Clear 45, Estimated GFR 80, Est GFR ( Amer) 97, Glucose 121 H, Calcium 8.9, Total Bilirubin 0.5, AST 87 H D, ALT 56 D, Alkaline Phosphatase 72, Total Protein 6.8, Albumin 3.6, Globulin 3.2, Albumin/Globulin Ratio 1.1 11/21/20 05:30: WBC 9.2, RBC 4.55, Hgb 13.5, Hct 39.4, MCV 86.6, MCH 29.6, MCHC 34.2, RDW 12.6, Plt Count 369, MPV 8.6, Neut % (Auto) 77.0, Lymph % (Auto) 16.5, Holt % (Auto) 6.0, Eos % (Auto) 0.1, Baso % (Auto) 0.5, Neut # (Auto) 7.1, Lymph # (Auto) 1.5, Holt # (Auto) 0.6, Eos # (Auto) 0.0, Baso # (Auto) 0.1 I & O for Last 24 hours: Intake & Output 11/18/20 11/19/20 11/20/20 11/21/20 23:59 23:59 23:59 23:59 Intake Total 2400 / 2880 2098 / 2098 1636 / 1636 Output Total 200 / 200 300 / 300 901 / 901 Balance 2200 / 2680 1798 / 1798 735 / 735 Weight 65 kg 65.572 kg 65.6 kg Assessment and Plan (1) Acute respiratory failure with hypoxia Status: Acute Category: Medical Code(s): J96.01 - Acute respiratory failure with hypoxia (2) Pneumonia due to COVID-19 virus Status: Acute Category: Medical Code(s): U07.1 - COVID-19; J12.82 - Pneumonia due to coronavirus disease 2019 (3) Essential hypertension Status: Acute Category: Medical Code(s): I10 - Essential (primary) hypertension (4) Hypercholesterolemia Status: Acute Category: Medical Code(s): E78.00 - Pure hypercholesterolemia, unspecified The patient's infection will respond to the chosen ABx?: Yes (EMPIRIC PNEUMONIA THERAPY) Is the patient receiving the right drug, dose, and route?: Yes Could a more targeted ABx be ordered?: No (CULTURES SHOW NO GROWTH)
[2020-11-21 08:00] VITALS: BP 177/98; PULSE 88; RESP 18; TEMP 36.6; O2SAT 91
[2020-11-21 09:21] VITALS: BP 144/123; PULSE 96; O2SAT 89
--- NOTE | 2020-11-21 09:40 | SW/DCPLANNER ---
SET UP HOME 02 FOR THIS PATIENT THAT IS DISCHARGING HOME TODAY PER DR BRAY.. PATIENT CHOSE [facility].. A PORTABLE WILL BE DELIVERED TO THE HOSPITAL PRIOR TO PATIENT DISCHARGING HOME AND SHE IS TO FOLLOW UP WITH DR BRAY IN THE OFFICE NEXT WEEK...
[2020-11-21 10:09] VITALS: BP 163/103; PULSE 83; O2SAT 90
[2020-11-21 10:10] VITALS: BP 177/98; PULSE 87; O2SAT 89
== END 2020-11-21 12:10 | disposition home or self-care (01) | DRG 177 ==
LOC: ER 17:41 → ICU 22:28 → 2ND 11-18 15:18 → ICU 11-19 17:21
PROVIDERS: Admitting Provider Family Medicine; Emergency Provider Emergency Medicine; PCP Family Medicine; Visit Provider Family Medicine
DX: U07.1 COVID-19 (principal); J12.82 Pneumonia due to coronavirus disease 2019; J96.01 Acute respiratory failure with hypoxia; I10 Essential (primary) hypertension; E78.00 Pure hypercholesterolemia, unspecified; E87.6 Hypokalemia
CPT/HCPCS: 96374; 36415; 71045; 80053; 82803; 83605; 84145; 84484; 85025; 87040; 93005; 94761; 97116; 97162; 97530; 99284; J0456; U0003

== ENCOUNTER 2022-05-04 14:24 | Inpatient (IN) | payer MEDICARE, SELFPAY ==
[2022-05-04] VITALS (7 sets, daily range): BP systolic 110–139; BP diastolic 69–80; PULSE 71–89; RESP 16–18; TEMP 36.7–36.8; O2SAT 92–98; BMI 30.2; BMI 29.4
--- NOTE | 2022-05-04 14:49 | XR_ITS ---
PROCEDURE INFORMATION: Exam: XR Right Hip Exam date and time: 05/04/2022 3:10 PM Age: 81 years old Clinical indication: Injury or trauma; Fall; Blunt trauma (contusions or hematomas); Right; Hip TECHNIQUE: Imaging protocol: Radiologic exam of the Right hip. Views: 2 or 3 views hip with pelvis when performed. COMPARISON: No relevant prior studies available. FINDINGS: Bones/joints: Mildly displaced right femoral intertrochanteric fracture. Status post total left hip arthroplasty. The hardware appears intact. Soft tissues: Unremarkable. IMPRESSION: Mildly displaced right femoral intertrochanteric fracture.
--- NOTE | 2022-05-04 14:58 | PC.NURSE ---
DR. GAUTHIER AT BEDSIDE FOR EVALUATION
--- NOTE | 2022-05-04 15:02 | XR_ITS ---
FINAL REPORT CLINICAL HISTORY: FALL FINDINGS: Right ankle Three views were obtained. There is no acute fracture or dislocation. There are mild degenerative changes. Calcaneal spurs are noted. No soft tissue abnormality is identified. IMPRESSION: No acute process. Reviewed, Interpreted and Dictated by Johnny Gimenez III, MD Transcribed by Isa Alston Authenticated and [facility]
--- NOTE | 2022-05-04 15:02 | XR_ITS ---
FINAL REPORT CLINICAL HISTORY: FALL FINDINGS: RIGHT FEMUR Two views were obtained. There is a comminuted intertrochanteric fracture with coxa vara deformity. There are moderate degenerative changes of the hip. No soft tissue abnormality is seen. 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 Moderate degenerative changes of the hip. Reviewed, Interpreted and Dictated by Johnny Gimenez III, MD Transcribed by Marquita Interiano Authenticated and [facility]
--- NOTE | 2022-05-04 15:02 | XR_ITS ---
FINAL REPORT CLINICAL HISTORY: FALL FINDINGS: Three views of the left knee reveal no evidence of fracture or dislocation. The bony alignment is normal. There are mild degenerative changes. There is no evidence of joint effusion. No localized soft tissue abnormality is seen. IMPRESSION: Mild degenerative change with no acute abnormality identified. Reviewed, Interpreted and Dictated by Johnny Gimenez III, MD Transcribed by Marquita Interiano Authenticated and [facility]
--- NOTE | 2022-05-04 15:14 | PC.NURSE ---
PT TO XR AT THIS TIME PER WC
--- NOTE | 2022-05-04 15:46 | PC.NURSE ---
BACK FROM RADIOLOGY
--- NOTE | 2022-05-04 16:03 | HMH.EDLOEX ---
Discharge Plan Disposition Patient Disposition: Admitted As Inpatient Clinical Impressions Clinical Impression: Closed intertrochanteric fracture of right femur Discharge ED Provider: Talon Rowley Lower Extremity Injury HPI General Chief Complaint: Extremity Injury, Lower Stated Complaint: AO 05/04@home@1400 pain in Rt leg Time Seen by Provider: 05/04/22 14:40 Mode of Arrival: Wheelchair Limitations: No Limitations Description of Symptoms (Recalled from ER Triage Doc. by RN): PT REPORTS FALL GETTING OUT OF VEHICLE, PAIN TO RIGHT LEG History of Present Illness HPI Narrative: Patient is a 81-year-old female who presents with concern for a fall. She states that earlier today around 2:00 she had a ground-level fall. She says that she was not able to walk afterwards and she says that her pain is extreme when she straightens her leg out. She denies any numbness or tingling. She cannot located her pain in any particular area just says that it is her entire right leg. Denies any chest or abdominal pain. Denies any shortness of breath. She did not hit her head. Related Data Home Medications Medication Instructions Recorded Confirmed atorvastatin 40 mg tablet 40 mg PO DAILY Cholesterol 11/17/20 11/18/20 benazepril 10 mg tablet 10 mg PO DAILY Hypertension 11/17/20 11/18/20 hydrochlorothiazide 25 mg tablet 25 mg PO DAILY Fluid 11/17/20 11/18/20 Previous Rx's Medication Instructions Recorded aspirin 325 mg tablet 325 mg PO DAILY #30 tabs 11/21/20 azithromycin 250 mg tablet 250 mg PO DAILY #5 tabs 11/21/20 dexamethasone 6 mg tablet 6 mg PO DAILY #7 tabs 11/21/20 Allergies Allergy/AdvReac Type Severity Reaction Status Date / Time No Known Allergies Allergy Unverified 11/18/20 07:20 PFSH PFS Social History Smoking Status: Never smoker alcohol intake: never current occupational status: disabled Travel in the last 8 weeks: None ROS Obtained: Yes All systems reviewed & no additional complaints except as documented A 14 point review of system was obtained and otherwise negative except per HPI Physical Exam General General appearance: alert and in no apparent distress Head Head exam: atraumatic, normocephalic and normal inspection Eye Eye exam: Present normal appearance, PERRL and EOMI ENT ENT exam: Present normal exam, normal oropharynx, mucous membranes moist, TM's normal bilaterally and normal external ear exam Neck Neck exam: Present normal inspection, full ROM and trachea midline; Absent meningismus or lymphadenopathy Chest Chest inspection: Present normal inspection and symmetric chest wall rise; Absent tenderness Respiratory Respiratory exam: Present normal lung sounds bilaterally; Absent respiratory distress Cardiovascular Cardiovascular exam: Present regular rate and normal rhythm; Absent JVD Abdominal Exam Abdominal exam: Present soft and normal bowel sounds; Absent distention, tenderness or guarding Extremities Exam Extremities exam: Present normal inspection, full ROM and normal capillary refill; Absent calf tenderness Expanded Lower Extremity Exam Right: Hip/Pelvis exam: Present normal inspection and tenderness; Absent full ROM, deformity, external rotation, internal rotation or shortening of leg Back Exam Back exam: Present normal inspection; Absent tenderness Neurological Exam Neurological exam: Present alert and oriented X3 Psychiatric Psychiatric exam: Present normal affect and normal mood Skin Skin exam: Present warm, dry, intact and normal color Lymphatic Lymphatic Findings: no adenopathy Medical Decision Making Medical Records Medical records reviewed: Yes I reviewed the patient's medical records. Oscar Inquiry Pt receiving controlled substance: No Vital Signs: 05/04/22 14:26 Temperature 98.0 F Temperature Source Oral Pulse Rate [Radial] 89 Respiratory Rate 18 Blood Pressure [Right Arm] 125/77 Blood
--- NOTE | 2022-05-04 16:08 | PC.NURSE ---
FAMILY UPDATED AT THIS TIME
[2022-05-04 17:50] LABS: Coronavirus 19, PCR Not Detected (NotDetected); Influenza A, PCR Not Detected (NotDetected); Influenza B, PCR Not Detected (NotDetected)
--- NOTE | 2022-05-04 18:26 | EXP.ORTH.CON ---
History of Present Illness *Admission Date: 05/04/22 *Reason for visit:: Right hip fracture *History of present illness: Patient is a 81-year-old female who presents with concern for a fall. She states that earlier today around 2:00 she had a ground-level fall. She says that she was not able to walk afterwards and she says that her pain is extreme when she straightens her leg out. She denies any numbness or tingling. She cannot located her pain in any particular area just says that it is her entire right leg. Denies any chest or abdominal pain. Denies any shortness of breath. She did not hit her head. X-rays revealed right intertrochanteric hip fracture I was consulted for treatment options. PFSH PFS Social History Smoking Status: Never smoker alcohol intake: never current occupational status: disabled Travel in the last 8 weeks: None Review of Systems Constitutional Constitutional: Denies fever(s) *Cardiovascular Cardiovascular: Denies chest pain with activity and Denies dyspnea *Respiratory Respiratory: Denies dyspnea Meds Home Medications and Allergies Home Medications Medication Instructions Recorded Confirmed Type atorvastatin 40 mg tablet 40 mg PO DAILY Cholesterol 11/17/20 11/18/20 History benazepril 10 mg tablet 10 mg PO DAILY Hypertension 11/17/20 11/18/20 History hydrochlorothiazide 25 mg tablet 25 mg PO DAILY Fluid 11/17/20 11/18/20 History aspirin 325 mg tablet 325 mg PO DAILY #30 tabs 11/21/20 Rx azithromycin 250 mg tablet 250 mg PO DAILY #5 tabs 11/21/20 Rx dexamethasone 6 mg tablet 6 mg PO DAILY #7 tabs 11/21/20 Rx New Prescriptions to Start Prescriptions: Allergies Allergy/AdvReac Type Severity Reaction Status Date / Time No Known Allergies Allergy Unverified 11/18/20 07:20 Ortho Exam (Inpt) Vital signs and Labs for Last 24 Hours: Temp Pulse Resp BP Pulse Ox 98.0 F 89 18 125/77 95 05/04/22 14:26 05/04/22 14:26 05/04/22 14:26 05/04/22 14:26 05/04/22 14:26 Laboratory Results - last 24 hr 05/04/22 17:44: SARS-CoV-2 (PCR) Not detected, Influenza A Untype (PCR) Not detected, Influenza Type B (PCR) Not detected I & O for Labs for Last 24 Hours: Intake & Output 05/01/22 05/02/22 05/03/22 05/04/22 23:59 23:59 23:59 23:59 Weight 165 lb Additional findings:: Right hip: Shortened and externally rotated. Significant pain with any active motion of the hip. Sensations intact. X-rays revealed intertrochanteric hip fracture basicervical type right side Results Labs Labs: All other labs normal. Assessment and Plan *Assessment and plan (1) Closed intertrochanteric fracture of right femur: Status: Acute Category: Medical Code(s): S72.141A - Displaced intertrochanteric fracture of right femur, initial encounter for closed fracture Plan I discussion with the patient regarding treatment options. We will plan on surgical intervention in the morning. Cephalomedullary nailing of the right intertrochanteric hip fracture. Will allow for early ambulation PROPOSED SURGERY: Cephalomedullary nailing right proximal femur the risks and benefits of the proposed surgery were discussed in depth with the patient. Potential complications including inherent risk of anesthesia, infection, neurovascular damage, DVT, and potential loss of limb or life were all reviewed. Patient voices understanding and seems to understand to my satisfaction and wishes to proceed with surgery. I gave them adequate time to ask any questions they have pertaining to this surgery and answered all of them to the best of my ability. I gave them no guarantees in regards to outcomes of this surgery.
--- NOTE | 2022-05-04 19:03 | PC.NURSE ---
Notified house calls nurse of admission.
--- NOTE | 2022-05-04 19:55 | EXP.HP ---
History of Present Illness *Admission Date: 05/04/22 *Reason for visit:: fall *History of present illness: Ms. Hipolito Valdez is an 81-year-old female with a past medical history of HTN, Hyperlipidemia and OA. She presents to the ER today secondary to a ground level fall that occurred just prior to presentation. She reports that she stepped out of her care and her right leg gave, resulting in a fall. She reports that she was unable to bear weight so she came into the ER for evaluation. In the ER, the patient underwent PFSH PFSH Family History (Updated 05/04/22 @ 19:28 by Arabella Birmingham, RN) Other No significant family history Social History (Updated 05/04/22 @ 19:28 by Arabella Birmingham RN) Smoking Status: Never smoker alcohol intake: never current occupational status: disabled Travel in the last 8 weeks: None Meds Home Medications and Allergies Home Medications Medication Instructions Recorded Confirmed Type atorvastatin 40 mg tablet 40 mg PO DAILY Cholesterol 11/17/20 11/18/20 History benazepril 10 mg tablet 10 mg PO DAILY Hypertension 11/17/20 11/18/20 History hydrochlorothiazide 25 mg tablet 25 mg PO DAILY Fluid 11/17/20 11/18/20 History aspirin 325 mg tablet 325 mg PO DAILY #30 tabs 11/21/20 Rx azithromycin 250 mg tablet 250 mg PO DAILY #5 tabs 11/21/20 Rx dexamethasone 6 mg tablet 6 mg PO DAILY #7 tabs 11/21/20 Rx New Prescriptions to Start Prescriptions: Allergies Allergy/AdvReac Type Severity Reaction Status Date / Time No Known Allergies Allergy Unverified 11/18/20 07:20 Exam Data for Last 24 hours Vital signs and Labs for Last 24 Hours: Temp Pulse Resp BP Pulse Ox 98.0 F 89 18 125/77 95 05/04/22 14:26 05/04/22 14:26 05/04/22 14:26 05/04/22 14:26 05/04/22 14:26 Laboratory Results - last 24 hr 05/04/22 17:44: SARS-CoV-2 (PCR) Not detected, Influenza A Untype (PCR) Not detected, Influenza Type B (PCR) Not detected I & O for Last 24 hours: Intake & Output 05/01/22 05/02/22 05/03/22 05/04/22 23:59 23:59 23:59 23:59 Weight 74.843 kg
--- NOTE | 2022-05-04 20:00 | EXP.HP ---
History of Present Illness *Admission Date: 05/04/22 *History of present illness: Ms. Hipolito Valdez is an 81-year-old female with a past medical history of HTN, Hyperlipidemia and OA. She presents to the ER today secondary to a ground level fall that occurred just prior to presentation. She reports that she stepped out of her care and her right leg gave, resulting in a fall. She reports that she was unable to bear weight so she came into the ER for evaluation. In the ER, the patient underwent imaging of the right hip and right femur that showed a communited intertroachanteric fracture with coxa vara deformity. The ER Physician spoke with Orthopaedics, plan is for cephalomedullary nailing of the right intertrochanteric fracture on 05/05. The plan of care to admit and have Orthopaedics consult was discussed with the patient and her daughter at bedside. Both verbalized understanding and agreement with the plan of care. PFSH PFSH Medical History History of COVID-19 History of gastroesophageal reflux (GERD) History of hip fracture Pneumonia Surgical History History of cholecystectomy History of hip replacement History of hysterectomy History of left hip replacement Family History Other Family history of diabetes mellitus type II No significant family history Social History (Updated 05/05/22 @ 08:59 by Alma Barbosa CRNA) Smoking Status: Former smoker alcohol intake: never substance use type: denies use current occupational status: disabled Travel in the last 8 weeks: None Review of Systems Review of Systems Review of systems:: pertinent systems reviewed and negative unless documented below Constitutional Constitutional: Reports body ache(s) Eyes Eyes: Reports system reviewed and no additional complaints, except as documented ENT Ears, Nose, Mouth, and Throat: Reports system reviewed and no additional complaints, except as documented *Cardiovascular Cardiovascular: Reports system reviewed and no additional complaints, except as documented *Respiratory Respiratory: Reports system reviewed and no additional complaints, except as documented *Gastrointestinal Gastrointestinal: Reports system reviewed and no additional complaints, except as documented *Genitourinary Genitourinary: Reports system reviewed and no additional complaints, except as documented *Musculoskeletal Musculoskeletal: Reports abnormal gait, Reports arthralgias, Reports joint swelling and Reports limited range of motion Integumentary/Breasts Skin/Breast: Reports system reviewed and no additional complaints, except as documented *Neurologic Neurologic: Reports system reviewed and no additional complaints, except as documented and Reports abnormal gait Psychiatric Psychiatric: Reports system reviewed and no additional complaints, except as documented Endocrine Endocrine: Reports system reviewed and no additional complaints, except as documented Hematologic/Lymphatic Hematologic/Lymphatic: Reports system reviewed and no additional complaints, except as documented Allergic/Immunologic Allergic/Immunologic: Reports system reviewed and no additional complaints, except as documented Meds Home Medications and Allergies Home Medications Medication Instructions Recorded Confirmed Type atorvastatin 40 mg tablet 40 mg PO DAILY Hyperlipidemia 11/17/20 05/04/22 History benazepril 10 mg tablet 10 mg PO DAILY Hypertension 11/17/20 05/04/22 History hydrochlorothiazide 25 mg tablet 25 mg PO DAILY Edema 11/17/20 05/04/22 History New Prescriptions to Start Prescriptions: Allergies Allergy/AdvReac Type Severity Reaction Status Date / Time No Known Allergies Allergy Unverified 11/18/20 07:20 Exam Data for Last 24 hours Vital signs and Labs for Last 24 Hours: Temp Pulse Resp BP
[2022-05-04 20:39] LABS: Basophils # 0.1 K/mm3 (0-0.2); Basophils % 0.3 % (0.1-2.0); Chloride 97 mmol/L (98-107); Eosinophils % 0.1 % (0.1-12.0); Hematocrit 40.2 % (37.0-47.0); Hemoglobin 13.2 g/dL (12.2-16.2); Lymphocytes # 1.4 K/mm3 (0.7-4.5); Lymphocytes % 10.2 % (10-50); Mean Corpuscular HGB Conc 32.9 g/dL (31.8-35.4); Mean Corpuscular Hemoglobin 30.3 pg (27.0-31.2); Mean Corpuscular Volume 92.2 fl (81-99); Mean Platelet Volume 8.5 fl (7.4-10.4); Monocytes # 0.6 K/mm3 (0.1-1.0); Monocytes % 4.2 % (1.7-9.3); Neutrophils # 11.5 K/mm3 (1.8-7.8); Neutrophils % 85.2 % (37.0-80.0); Platelet Count 261 K/mm3 (142-424); Potassium 3.9 mmoL/L (3.5-5.1); Red Blood Count 4.36 M/mm3 (4.20-5.40); Red Cell Distribution Width 13.1 % (11.5-17.5); Sodium 138 mmol/L (136-145); White Blood Count 13.5 K/mm3 (4.8-10.8)
[2022-05-04 20:42] LABS: Alanine Aminotransferase 30 U/L (12-78); Albumin Level 4.6 g/dl (3.5-5.0); Albumin/Globulin Ratio 1.7 (1.1-1.8); Alkaline Phosphatase 102 U/L (38-126); Anion Gap 14.9 mEq/L (5-15); Aspartate Amino Transferase 39 U/L (14-36); Bilirubin,Total 0.9 mg/dl (0.2-1.3); Blood Urea Nitrogen 16 mg/dl (7-17); Calcium 9.2 mg/dl (8.4-10.2); Carbon Dioxide 30 mmol/L (22.0-30.0); Creatinine Clearance Estimated 50 mL/min (50-200); Estimated Glomerular Filt Rate 69 ml/min (>60); GFR (African American) 83 ML/MIN (>60); Globulin 2.7 g/dL (1.3-3.2); Glucose 143 mg/dl (74-100); Total Protein,Serum 7.3 g/dl (6.3-8.2)
[2022-05-04 20:45] LABS: MANUAL DIFFERENTIAL MANUAL DIFFERENTIAL (MANUAL DIFF)
[2022-05-04 20:59] LABS: Microscopic, Urine URINE MICROSCOPIC (MICROSCOPIC)
[2022-05-04 21:04] LABS: Appearance,Urine CLEAR (Clear); Bilirubin,Urine Negative (Negative); Blood, Urine Negative (Negative); Color,Urine YELLOW (Yellow); Glucose,Urine (UA) Negative (Negative); Ketones,Urine TRACE (Negative); Leukocyte Esterase,Urine TRACE (Negative); Nitrate,Urine Negative (Negative); Protein,Urine Negative (Negative); Urobilinogen,Urine 0.2 EU/dl (0.2)
--- NOTE | 2022-05-04 21:12 | PC.NURSE ---
PT ARRIVED TO [facility] AT 21:04 VIA STRETCHER
[2022-05-04 21:23] LABS: Bacteria,Urine 2+ /lpf; RBC,Urine Occasional #/hpf (0-3)
[2022-05-04 21:45] LABS: Lymphocytes % 11 % (10-50); Neutrophils % 89 % (42-76); Total Cells Counted 100
[2022-05-04 21:46] LABS: Platelet Estimate Normal; Stomatocytes 1+
[2022-05-05] VITALS (21 sets, daily range): BP systolic 89–163; BP diastolic 48–96; PULSE 82–102; RESP 16–22; TEMP 36.6–43; O2SAT 90–95; BMI 29.4
--- NOTE | 2022-05-05 05:27 | PC.NURSE ---
NO ACUTER CHANGES SINCE PREVIOUS ASSESSMENT. LUNG SOUNDS ARE CLEAR BILATERALLY. REMAINS ON ROOM AIR. PT HAS C/O RT HIP PAIN X3 THIS SHIFT AND HAS BEEN MEDICATED PER MAR FOR PAIN WITH MODERATE RELIEF. PT HAS RESTED INTERMITTENTLY. DAUGHTER AT BEDSIDE. PT AND DAUGHTER HAVE ASKED MANY QUESTIONS ON WHEN PT'S PROCEDURE WOULD BE. PT AND FAMILY UPDATED ON PLAN. KRISHNAN IN PLACE DRAINING ADEQUATE AMOUNTS OF URINE. VSS.
[2022-05-05 07:12] LABS: Chloride 98 mmol/L (98-107); Potassium 3.7 mmoL/L (3.5-5.1); Sodium 137 mmol/L (136-145)
[2022-05-05 07:14] LABS: Basophils # 0.1 K/mm3 (0-0.2); Basophils % 0.9 % (0.1-2.0); Eosinophils # 0.1 K/mm3 (0.0-0.4); Eosinophils % 0.8 % (0.1-12.0); Hematocrit 38.5 % (37.0-47.0); Hemoglobin 12.9 g/dL (12.2-16.2); Lymphocytes # 2.2 K/mm3 (0.7-4.5); Lymphocytes % 21.1 % (10-50); Mean Corpuscular HGB Conc 33.4 g/dL (31.8-35.4); Mean Corpuscular Hemoglobin 30.3 pg (27.0-31.2); Mean Corpuscular Volume 90.8 fl (81-99); Mean Platelet Volume 8.3 fl (7.4-10.4); Monocytes # 0.7 K/mm3 (0.1-1.0); Monocytes % 6.4 % (1.7-9.3); Neutrophils # 7.4 K/mm3 (1.8-7.8); Neutrophils % 70.8 % (37.0-80.0); Platelet Count 266 K/mm3 (142-424); Red Blood Count 4.24 M/mm3 (4.20-5.40); Red Cell Distribution Width 12.9 % (11.5-17.5); White Blood Count 10.4 K/mm3 (4.8-10.8)
[2022-05-05 07:15] LABS: Alanine Aminotransferase 29 U/L (12-78); Albumin Level 4.4 g/dl (3.5-5.0); Albumin/Globulin Ratio 1.6 (1.1-1.8); Alkaline Phosphatase 89 U/L (38-126); Anion Gap 13.7 mEq/L (5-15); Aspartate Amino Transferase 38 U/L (14-36); Blood Urea Nitrogen 20 mg/dl (7-17); Calcium 8.7 mg/dl (8.4-10.2); Carbon Dioxide 29 mmol/L (22.0-30.0); Creatinine Clearance Estimated 49 mL/min (50-200); Estimated Glomerular Filt Rate 69 ml/min (>60); GFR (African American) 83 ML/MIN (>60); Globulin 2.7 g/dL (1.3-3.2); Glucose 120 mg/dl (74-100); Total Protein,Serum 7.1 g/dl (6.3-8.2)
--- NOTE | 2022-05-05 07:39 | HMH.PHAINT1 ---
Pharmacy Intervention Comments: Home medication reconciliation completed using outpatient pharmacy medication fill history.
--- NOTE | 2022-05-05 08:47 | PC.NURSE ---
Pt to surgery @ 8016.
--- NOTE | 2022-05-05 08:58 | EXP.ANES.CKL ---
PFSH PFS Medical History History of COVID-19 History of gastroesophageal reflux (GERD) History of hip fracture Pneumonia Surgical History History of cholecystectomy History of hip replacement History of hysterectomy History of left hip replacement Family History Other Family history of diabetes mellitus type II No significant family history Social History Smoking Status: Former smoker alcohol intake: never substance use type: denies use current occupational status: disabled Travel in the last 8 weeks: None [facility] Anesthesia Checklist Patient Identification Patient Identification: Arm Band and Verbal (Name & ) Structural Data Admitted From: Home Planned Operative Procedure/s: Hip nailing Consent for Planned Operative Procedure(s) Verified: Yes NPO Status Verified Time NPO: 00:00 Airway Assessment C-Spine Mobility Assessed: Yes TMJ Mobility Assessed: Yes Dentition: Edentulous Neurological Assessment Level of Consciousness: Awake Hx Seizures: No Numbness or tingling in extremities: No Anesthesia Plan Anesthesia Risk discussed: Yes Anesthesia Plan: Verified ASA Class: II Anesthesia Type: General
--- NOTE | 2022-05-05 11:19 | SUR.OPER ---
1022- pt has some redness around the sacral/ buttock area noted prior to surgery. No other breakdown noted.
--- NOTE | 2022-05-05 12:10 | EXP.OP.NOTE ---
Date of procedure: 05/05/22 Pre-op Diagnosis:: Right intratrochanteric hip fracture basicervical type Post-op Diagnosis:: Same Procedure performed:: Cephalomedullary nailing right intertrochanteric hip fracture Surgeon:: Carlton Cardoza DO Anesthesia: GETA Estimated blood loss (mL): 100 Clinical Note:: 81-year-old female who suffered a ground-level fall and suffered an intertrochanteric hip fracture on the right side presented today for operative fixation Operative findings:: See dictation Operative note:: Patient was identified preoperatively right hip marked yes my initials transported operative suite placed upon operating bed general anesthesia ministered airway secured then placed in the fracture table. The right hip was placed with a perineal pad and traction. Left leg was placed in a semilithotomy position. All bony prominences well-padded. Final operative timeout performed to identify proper patient procedure and extremity everyone involved in the case agreed there were no counter indications to beginning she did receive preoperative antibiotics. C arm x-ray was brought in to confirm reduction of the fracture which was accomplished with the fracture table with traction and internal rotation. AP and lateral views of the hip were reviewed after reduction. Once reduction was performed right hip was prepped and draped in normal fashion. X-ray was brought into identified tip of the greater trochanter and planned trajectory of cephalomedullary nail. Skin knife was used to incise through skin and IT band digital palpation on the greater trochanter was used and the guidewire pin was placed in the tip of the trochanter and into the femur. It was viewed on the AP and lateral views to confirm placement. Opening reamer then was used to open the hole in the greater trochanter. Selected the Synthes TFN size 11 nail. The nail was placed on the impactor and inserted and placed into the canal over the guidewire. X-ray was then used to show proper placement for depth of the nail. Triple cannula was then used for placement of the guidepin for the helical blade. It was measured off the back of the wire to a size 95. Lateral cortex reamer was used to open the cortex and the size 95 helical blade was impacted under direct visualization on the x-ray. Once in good position the locking mechanism was screwed into the top of the helical blade and compression of the fracture was obtained through the jig by the triple cannula. This was visualized on x-ray and gave good reduction and compression of the fracture. Triple cannula was removed and the distal triple cannula was placed and distal locking screw for the TFN nail was drilled and placed. [employer] guide was then removed from the nail AP and lateral views of the hip were obtained to show good reduction of the fracture and good placement of the hardware Copious irrigation wound performed IT band closed with 0 Vicryl suture subcutaneous closed with 2-0 Vicryl suture surgical clips and skin for closure sterile dressing placed patient with anesthesia taken recovery stable condition. Condition: stable Disposition: PACU Complications:: None apparent
--- NOTE | 2022-05-05 12:19 | P.PNANES_ITS ---
[facility] Anesthesia Record Part I Anesthesia Record I Intake, IV Amount: 450 Estimated blood loss (mL): 50 Urine output (mL): 0 Blood Products used (#): none Blood Pressure: 151/96 SaO2: 94 Pulse Rate: 100 Respiratory Rate: 22 Temperature: 97.8 F Patient is:: Drowsy Stable to PACU at:: 12:10
--- NOTE | 2022-05-05 12:50 | SUR.PHASEI ---
1239- detailed report called to maddie chand on medsur floor. 1241- pt left in stable condition with maddie giles in pt room. Family at bedside. Pt hooked up to monitors and stable. All dressings CDI
--- NOTE | 2022-05-05 13:00 | XR_ITS ---
FINAL REPORT CLINICAL HISTORY: OR HIP PINNING 3.42 fluoro time FINDINGS: FLUORO TIME PROCEDURE: ORIF proximal femur fracture FINDINGS: Fluoroscopy time was provided by the radiology department for the clinical service. Four films were obtained. Fluoroscopy exposure time: 3.42 minutes IMPRESSION: See above Reviewed, Interpreted and Dictated by Johnny Gimenez III, MD Transcribed by Marquita Interiano Authenticated and [facility] [place]
--- NOTE | 2022-05-05 13:23 | HMH.PTEV ---
Physical Therapy Evaluation Rehab PT IP Evaluation Start: 05/05/22 12:17 Freq: ONCE Status: Active Protocol: Document 05/05/22 13:19 FAREED (Rec: 05/05/22 13:23 FAREED [id number]) Subjective/History History History This is the initial IP PT evaluation for Minnie Valdez. Pt is an 81 y/o female admitted to [facility] s/p fall at home. Pt suffered inter- trochanteric fx on R side s/p fall. Pt had ORIF fixation today of R fx and is WBAT. Subjective Subjective Pt reports c/o pain w/ mvmnt - pt lives in double wide w/ spouse. Family lives close and is able to assist and supervise Rehab PT IP Eval Objective Appearance Patient Behavior Appropriate,Cooperative Patient Orientation Place,Name,Birthday,Year, Situation Difficulty following instructions none Speech Pattern Clear,Appropriate Ambulation Patient Able to Ambulate Yes Ambulation Observation IP General Gait Pattern Observation Antalgic Gait,Decrease Weight Bear (L),Decrease Stride Lngth (R),Decrease Stride Lngth (L) Ambulation Distance (feet) 2 Ambulation Assistive Device Rolling Walker Ambulation Ability Contact Guard/Hand Hold Balance Ability to Arise Able, uses arms to help Sitting Balance Steady, safe Standing Balance Steady, wide stance Dynamic Sitting Balance Ability Good Dynamic Standing Balance Ability Fair Transfers Bed Transfer Ability Contact Guard/Hand Hold, Minimal x 1 (25% assist) Chair Transfer Ability Contact Guard/Hand Hold, Minimal x 1 (25% assist) Sit to Stand Bed Transfer Ability Contact Guard/Hand Hold, Minimal x 1 (25% assist) Sit to Stand Chair Transfer Ability Contact Guard/Hand Hold, Minimal x 1 (25% assist) Rehab PT IP prob,goals,plan Problems Date of Evaluation: 05/05/22 PT IP Problems Bed Mobility,Transfers,Gait, Balance,Self care,Safety Rehab Potential Rehab Potential Fair Equipment Needs Assistive Devices Rolling / Wheeled Walker Plan PT Intervention Plan Bed Mobility,Transfers,Gait, Balance,Self care,Safety, Therapeutic Exercise PT Plan Frequency BID Du
--- NOTE | 2022-05-05 15:14 | SW/DCPLANNER ---
Addendum entered by Apple Campo 05/06/22 13:53: Patient information/order has been faxed to [facility]: I will follow up with home health once information is reviewed. Patient will discharge home later today. Original Note: I spoke with this patient's family (two daughters) regarding plans for patient once medically stable for discharge. Daughters stated that patient plans to return home with home health services and family available 07/02. PT/OT has recommended home health services at discharge. I will follow up with patient/family tomorrow morning. Discharge date is unknown at this time. Family stated that patient has all appropriate DME at home due to past hip surgery.
--- NOTE | 2022-05-05 17:05 | EXP.ACUTE.PN ---
Subjective *Date: 05/05/22 *Time: 17:05 Interval history: Patient did well overnight and has no complaints other than right hip pain. Reevaluated after surgery. Remains afebrile. Mild tachycardia likely due to pain. Has required some slight oxygen after surgery, not normally on oxygen at home. Is adamant that she wants to go home with home health. Has family at bedside that is able to help care for her. We will have OT/PT evaluate. Denies any nausea, chest pain, confusion, abdominal pain. Medical Exam Vital signs and Labs for Last 24 Hours: Vital Signs Temp Pulse Pulse Resp BP BP Pulse Ox 05/05/22 16:00 98.3 F 97 H 16 110/76 93 L 05/05/22 15:30 96 H 18 120/76 92 L 05/05/22 15:00 102 H 20 136/85 93 L 05/05/22 14:30 97.9 F 101 H 20 134/71 95 05/05/22 14:00 97.9 F 88 18 140/73 94 L 05/05/22 13:30 94 H 16 128/76 93 L 05/05/22 13:15 99 H 16 150/77 H 92 L 05/05/22 13:00 98 H 18 154/84 H 92 L 05/05/22 12:45 97.9 F 95 H 18 143/81 H 91 L 05/05/22 12:40 98.5 F 91 H 18 149/81 H 95 05/05/22 12:30 92 H 18 142/88 H 94 L 05/05/22 12:20 88 18 163/87 H 94 L 05/05/22 12:10 98.3 F 100 H 22 151/96 H 94 L 05/05/22 07:51 98.4 F 82 16 130/71 91 L 05/05/22 04:00 98 F 88 18 117/74 92 L 05/04/22 22:00 98.1 F 74 16 139/80 95 05/04/22 21:18 98.2 F 84 17 130/80 05/04/22 20:30 81 137/71 93 L 05/04/22 20:00 78 126/77 92 L 05/04/22 19:30 81 116/71 93 L 05/04/22 19:00 71 110/69 94 L 05/05/22 12:21 97.8 F 100 H 22 151/96 H Intake and Output 05/05/22 05/05/22 05/05/22 07:59 15:59 23:59 Intake Total 0 / 630 630 / 630 Output Total 200 / 700 0 / 700 500 / 700 Balance -200 / -70 630 / -70 -500 / -70 Intake: Intake, Oral Amount 0 / 180 180 / 180 Intake, Total IV Amount 450 / 450 Output: Output, Urine Amount 200 / 200 0 / 200 0 / 200 Output, Urine Amount (Catheter) 500 / 500 Latif 500 / 500 Other: Number of Unmeasured Voids 0 0 0 Weight 72.529 kg Patient Weight 05/05/22 23:59 Weight 72.529 kg Laboratory Results - last 24 hr 05/04/22 17:44: SARS-CoV-2 (PCR) Not detected, Influenza A Untype (PCR) Not detected, Influenza Type B (PCR) Not detected 05/04/22 20:21: WBC 13.5 H, RBC 4.36, Hgb 13.2, Hct 40.2, MCV 92.2, MCH 30.3, MCHC 32.9, RDW 13.1, Plt Count 261, MPV 8.5, Neut % (Auto) 85.2 H, Lymph % (Auto) 10.2, [place] % (Auto) 4.2, Eos % (Auto) 0.1, Baso % (Auto) 0.3, Neut # (Auto) 11.5 H, Lymph # (Auto) 1.4, [place] # (Auto) 0.6, Eos # (Auto) 0.0, Baso # (Auto) 0.1, Total Counted 100, Neutrophils % (Manual) 89 H, Lymphocytes % (Manual) 11, Platelet Estimate Normal, Stomatocytes 1+ 05/04/22 20:21: Sodium 138, Potassium 3.9, Chloride 97 L, Carbon Dioxide 30, Anion Gap 14.9, BUN 16, Creatinine 0.80, Estimated Creat Clear 50, Estimated GFR 69, Est GFR ( Amer) 83, Glucose 143 H, Calcium 9.2, Total Bilirubin 0.9, AST 39 H, ALT 30, Alkaline Phosphatase 102, Total Protein 7.3, Albumin 4.6, Globulin 2.7, Albumin/Globulin Ratio 1.7 05/04/22 20:51: Urine Color Yellow, Urine Appearance Clear, Urine pH 7.0, Ur Specific [place] 1.020, Urine Protein Negative, Urine Glucose (UA) Negative, Urine Ketones Trace, Urine Blood Negative, Urine Nitrate Negative, Urine Bilirubin Negative, Urine Urobilinogen 0.2, Ur Leukocyte Esterase Trace, Urine RBC Occasional, Urine WBC 5-10, Ur Squamous Epith Cells 3-5, Urine Bacteria 2+ 05/05/22 06:56: WBC 10.4, RBC 4.24, Hgb 12.9, Hct 38.5, MCV 90.8, MCH 30.3, MCHC 33.4, RDW 12.9, Plt Count 266, MPV 8.3, Neut % (Auto) 70.8, Lymph % (Auto) 21.1, [place] % (Auto) 6.4, Eos % (Auto) 0.8, Baso % (Auto) 0.9, Neut # (Auto) 7.4, Lymph # (Auto) 2.2, [place] # (Auto) 0.7, Eos # (Auto) 0.1, Baso # (Auto) 0.1 05/05/22 06:56: Sodium 137, Potassium 3.7, Chloride 98, Carbon Dioxide 29, Anion Gap 13.7, BUN 20 H, Creatinine 0.80, Estimated Creat Clear 49, Estimated GFR 69,
--- NOTE | 2022-05-05 20:54 | PC.NURSE ---
Post op dsg to r hip cdi, prn tylenol given per mar for QUINTANILLA and arthritis, pt states it helped. NAD. CB in reach.
[2022-05-06] VITALS: BP 97/51; PULSE 93; RESP 18; TEMP 36.5; O2SAT 91
[2022-05-06 04:00] VITALS: BP 104/59; PULSE 88; RESP 18; TEMP 36.6; O2SAT 90
--- NOTE | 2022-05-06 04:46 | PC.NURSE ---
NO ACUTE CHANGES SINCE PREVIOUS ASSESSMENT. PT HAS RESTED WELL THIS SHIFT. LUNG SOUNDS ARE CLEAR. REMAINS ON ROOM AIR. PT HAS TURNED IN BED WITH X1 ASSIST. NO C/O PAIN IN HER RT HIP THIS SHIFT. PT DID STATE THAT SHE WAS STIFF THIS AM. NO C/O OF N/V/D. VSS.
[2022-05-06 05:37] VITALS: BMI 29.5
--- NOTE | 2022-05-06 07:19 | EXP.ANES.II ---
[facility] Anesthesia Record Part II Anesthesia Record Part II Discharge Time: 12:40 Destination: Medical Surgical Department PACU nurse assessment reviewed?: Yes Patient Condition:: Good Anesthesia Complications:: None Swallowing reflex intact?: Yes Cyanosis?: No Blood Pressure: 149/81 Pulse Rate: 91 Temperature: 98.5 F Mental Status: Alert & Oriented Pain level:: 0 Nausea and/or vomitting:: None Intake, IV Amount: 0
[2022-05-06 07:20] VITALS: BP 149/81; PULSE 91; TEMP 36.9
[2022-05-06 07:22] LABS: Basophils % 0.3 % (0.1-2.0); Eosinophils % 0.1 % (0.1-12.0); Mean Corpuscular Hemoglobin 30.7 pg (27.0-31.2); Monocytes # 0.8 K/mm3 (0.1-1.0); Neutrophils # 9.7 K/mm3 (1.8-7.8); White Blood Count 12.7 K/mm3 (4.8-10.8)
[2022-05-06 07:29] LABS: Lymphocytes # 2.2 K/mm3 (0.7-4.5); Lymphocytes % 17.3 % (10-50); Mean Corpuscular HGB Conc 33.4 g/dL (31.8-35.4); Mean Corpuscular Volume 91.8 fl (81-99); Mean Platelet Volume 8.7 fl (7.4-10.4); Monocytes % 5.9 % (1.7-9.3); Neutrophils % 76.4 % (37.0-80.0); Platelet Count 237 K/mm3 (142-424)
[2022-05-06 07:30] LABS: Chloride 96 mmol/L (98-107); Potassium 4.1 mmoL/L (3.5-5.1); Sodium 135 mmol/L (136-145)
[2022-05-06 07:33] LABS: Blood Urea Nitrogen 30 mg/dl (7-17); Creatinine Clearance Estimated 33 mL/min (50-200); Estimated Glomerular Filt Rate 33 ml/min (>60); GFR (African American) 40 ML/MIN (>60)
[2022-05-06 07:34] LABS: Anion Gap 15.1 mEq/L (5-15); Calcium 8.6 mg/dl (8.4-10.2); Carbon Dioxide 28 mmol/L (22.0-30.0); Glucose 119 mg/dl (74-100)
[2022-05-06 07:36] LABS: Hemoglobin 11.3 g/dL (12.2-16.2)
[2022-05-06 08:00] VITALS: BP 101/42; PULSE 63; RESP 17; TEMP 36.7; O2SAT 90
--- NOTE | 2022-05-06 11:24 | PC.NURSE ---
500 cc LR bolus given, unable to scan on sep.
[2022-05-06 11:28] VITALS: BP 124/69; PULSE 87; RESP 17; TEMP 36.4; O2SAT 93
--- NOTE | 2022-05-06 13:49 | EXP.DC.SUM ---
General Admission date:: 05/04/22 Discharge date: 05/06/22 Hospital Course Hospital Course Hospital Course: 81-year-old female with history of hypertension, hyperlipidemia, admitted for right intertrochanteric fracture.? Taken for surgical intervention today, Ortho consulted, appreciate their assistance in care.? Pain fairly well controlled at this time.? Problems addressed as follows: Right Hip Fracture -Orthopedics consulted, status post Cephalomedullary nailing of right intertrochanteric fracture -PT/OT evaluation.? Recommend home health PT or outpatient PT when stable for discharge home. -Requiring minimal pain medication. Continue Tylenol. -Aspirin for 6 weeks for DVT prophylaxis. 325 mg twice daily. CECE - Occured after surgery. IV fluids administered. Continued to have normal UOP. Labs on Monday 05/07. further management in outpatient setting. Hypertension - Resumed home regimen when appropriate, controlled during admission. Hyperlipidemia - Resumed home regimen. Close follow-up with PCP for monitoring of kidney function. Follow-up with orthopedics in 1 to 2 weeks for evaluation of hip. Stable for discharge home with home health Exam Data for Last 24 hours Vital signs and Labs for Last 24 Hours: Temp Pulse Resp BP Pulse Ox 97.6 F 87 17 124/69 93 L 05/06/22 11:28 05/06/22 11:28 05/06/22 11:28 05/06/22 11:28 05/06/22 11:28 Laboratory Results - last 24 hr 05/06/22 06:43: WBC 12.7 H, RBC 3.70 L, Hgb 11.3 L D, Hct 34.0 L, MCV 91.8, MCH 30.7, MCHC 33.4, RDW 13.0, Plt Count 237, MPV 8.7, Neut % (Auto) 76.4, Lymph % (Auto) 17.3, [place] % (Auto) 5.9, Eos % (Auto) 0.1, Baso % (Auto) 0.3, Neut # (Auto) 9.7 H, Lymph # (Auto) 2.2, [place] # (Auto) 0.8, Eos # (Auto) 0.0, Baso # (Auto) 0.0 05/06/22 06:43: Sodium 135 L, Potassium 4.1, Chloride 96 L, Carbon Dioxide 28, Anion Gap 15.1 H, BUN 30 H D, Creatinine 1.50 H D, Estimated Creat Clear 33, Estimated GFR 33 L, Est GFR ( Amer) 40 L D, Glucose 119 H, Calcium 8.6 I & O for Last 24 hours: Intake & Output 05/03/22 05/04/22 05/05/22 05/06/22 23:59 23:59 23:59 23:59 Intake Total 750 / 750 600 / 600 Output Total 700 / 700 50 / 50 Balance 50 / 50 550 / 550 Weight 72.529 kg 72.529 kg 72.745 kg Microbiology Reports for the Last 24 Hours: Microbiology 05/04/22 20:51 Urine,Catheterized Urine Culture - Preliminary NO GROWTH AFTER 24 HOURS Constitutional Constitutional: no acute distress and chronically ill appearing *Routine HEENT Exam Head: Present normocephalic Eye: Present EOMI and PERRL ENT: Present mucous membranes moist *Routine Neck Exam Neck: Present supple; Absent lymphadenopathy *Routine Respiratory Exam Respiratory: Present CTA bilaterally; Absent rhonchi or wheezes *Routine Cardiovascular Exam Cardiovascular: Present RRR *Routine Abdominal Exam Abdominal: Present soft and normoactive bowel sounds; Absent tenderness *Routine Rectal Exam Patient deferred: visual exam *Routine Exam Patient deferred: external exam *Routine Extremities Exam Extremities: Absent cyanosis, clubbing or edema Comments: right hip bandage CDI *Routine Skin Exam Skin: Present warm; Absent rash *Routine Neurological Exam Neurological: Present alert and oriented X3; Absent sensory deficit, motor deficit or altered mental status Results Data Completed and Pending Labs on day of discharge: Labs from last 24 hours 05/06/22 05/06/22 06:43 06:43 WBC 12.7 H RBC 3.70 L Hgb 11.3 L D Hct 34.0 L MCV 91.8 MCH 30.7 MCHC 33.4 RDW 13.0 Plt Count 237 MPV 8.7 Neut % (Auto) 76.4 Lymph % (Auto) 17.3 [place] % (Auto) 5.9 Eos % (Auto) 0.1 Baso % (Auto) 0.3 Neut # (Auto) 9.7 H Lymph # (Auto) 2.2 [place] # (Auto) 0.8 Eos # (Auto) 0.0 Baso # (Auto) 0.0 Sodium 135 L Potassium 4.1 Chloride 96 L Carbon Dioxide 28 Anion Gap 15.1 H BUN 30 H D Creatinine 1.50 H D Est
--- NOTE | 2022-05-06 13:50 | EXP.EVENT.NO ---
Home health [id number] encounter note Name: Minnie Valdez Date of : 1940 Admission date: 05/04/22 Date of discussion: I certify that this patient, Minnie Valdez, is under my care and that I had a [id number] encounter that meets the [facility] requirements for this encounter (90 days prior to the start of care date or within 30 days after the start of care date). This [id number] encounter for the patient occurred on . I certify, based on my findings with the following services are medically necessary for home health services (yes when applicable) 1. Nursing: YES 2. Physical therapy: YES 3. Occupational Therapy: YES 4. Speech-language pathology: no The encounter with the patient was in whole, or in part, for the following medical condition, which is the primary reason for home health care. Condition: hypertension, hyperlipidemia, right intertrochanteric fracture. My clinical findings from the encounter support the patient is homebound due to (yes when applicable): 1. Leaving home requires a considerable and taxing effort: YES 2. Absences from home are infrequent or short duration or to receive health care treatment: no 3. Medically restricted due to immunosuppression, infectious illness, risk of infection or injury: no
--- NOTE | 2022-05-06 15:08 | EXP.ORTH.PN ---
Subjective *Date: 05/06/22 *Time: 15:08 Interval history: Patient doing great. She is up in the chair. Pain is controlled. No complaints. Ortho Exam (Inpt) Vital signs and Labs for Last 24 Hours: Temp Pulse Resp BP Pulse Ox 97.6 F 87 17 124/69 93 L 05/06/22 11:28 05/06/22 11:28 05/06/22 11:28 05/06/22 11:28 05/06/22 11:28 Laboratory Results - last 24 hr 05/06/22 06:43: WBC 12.7 H, RBC 3.70 L, Hgb 11.3 L D, Hct 34.0 L, MCV 91.8, MCH 30.7, MCHC 33.4, RDW 13.0, Plt Count 237, MPV 8.7, Neut % (Auto) 76.4, Lymph % (Auto) 17.3, [place] % (Auto) 5.9, Eos % (Auto) 0.1, Baso % (Auto) 0.3, Neut # (Auto) 9.7 H, Lymph # (Auto) 2.2, [place] # (Auto) 0.8, Eos # (Auto) 0.0, Baso # (Auto) 0.0 05/06/22 06:43: Sodium 135 L, Potassium 4.1, Chloride 96 L, Carbon Dioxide 28, Anion Gap 15.1 H, BUN 30 H D, Creatinine 1.50 H D, Estimated Creat Clear 33, Estimated GFR 33 L, Est GFR ( Amer) 40 L D, Glucose 119 H, Calcium 8.6 I & O for Labs for Last 24 Hours: Intake & Output 05/03/22 05/04/22 05/05/22 05/06/22 23:59 23:59 23:59 23:59 Intake Total 750 / 750 1220 / 1220 Output Total 700 / 700 50 / 50 Balance 50 / 50 1170 / 1170 Weight 159 lb 14.4 oz 159 lb 14.385 oz 160 lb 6 oz Microbiology Reports for the Last 24 Hours: Microbiology 05/04/22 20:51 Urine,Catheterized Urine Culture - Preliminary NO GROWTH AFTER 24 HOURS Additional findings:: Right hip: Dressing intact compartments soft Assessment and Plan *Assessment and plan (1) Status post hip surgery: Status: Acute Category: Surgical Code(s): Z98.890 - Other specified postprocedural states Plan Patient had successful cephalomedullary nailing right hip yesterday. She is doing quite well at this point. Her plan is to go home with the help of her family home health. She will return to clinic follow-up with me 2 weeks for staple removal. She will be weightbearing as tolerated. Dressing change tomorrow to convert over to Band-Aids. May shower no soaking. Aspirin 325 mg p.o. twice daily for DVT prophylaxis
[2022-05-06 15:18] LABS: Chloride 95 mmol/L (98-107); Sodium 134 mmol/L (136-145)
[2022-05-06 15:19] LABS: Potassium 3.5 mmoL/L (3.5-5.1)
[2022-05-06 15:21] LABS: Blood Urea Nitrogen 34 mg/dl (7-17); Creatinine Clearance Estimated 29 mL/min (50-200); Estimated Glomerular Filt Rate 29 ml/min (>60); GFR (African American) 35 ML/MIN (>60)
[2022-05-06 15:22] LABS: Anion Gap 14.5 mEq/L (5-15); Carbon Dioxide 28 mmol/L (22.0-30.0); Glucose 151 mg/dl (74-100)
[2022-05-06 15:37] VITALS: BP 100/58; PULSE 92; RESP 17; TEMP 36.9; O2SAT 92
--- NOTE | 2022-05-06 15:55 | PC.NURSE ---
500 ML of LR Bolus infusing at this time, unable to scan on sep.
--- NOTE | 2022-05-07 13:32 | CARE MANAGER ---
Spoke with Ms. Valdez's daughter to discuss post discharge status. She stated that patient is doing well. No concerns at this time.
== END 2022-05-06 17:20 | disposition home health service (06) | DRG 481 ==
LOC: ER 18:23 → 2ND 19:13
PROVIDERS: Nurse Practitioner Family; Orthopaedic Surgery; Admitting Provider Internal Medicine Adolescent Medicine; Emergency Provider Student in an Organized Health Care Education/Training Program; PCP Nurse Practitioner Family; Visit Provider Internal Medicine Adolescent Medicine
PROC: 0QS636Z Reposition Right Upper Femur with Intramedullary Internal Fixation Device, Percutaneous Approach (ICD-10-PCS; CPT 27245; principal; 2022-05-05 11:30)
DX: S72.141A Displaced intertrochanteric fracture of right femur, initial encounter for closed fracture (principal); N17.9 Acute kidney failure, unspecified; W19.XXXA Unspecified fall, initial encounter; I10 Essential (primary) hypertension; M19.90 Unspecified osteoarthritis, unspecified site; E78.5 Hyperlipidemia, unspecified
CPT/HCPCS: 27245; 51702; 73502; 73552; 73562; 73610; 80048; 80053; 81001; 85007; 85025; 87086; 97116; 97161; 97530; 99285; C1713; C1769; C1776; C9803; J2405; U0003; U0005

== ENCOUNTER → 2022-05-07 09:48 | Outpatient (CLI) | payer MEDICARE, SELFPAY ==
[2022-05-07 11:16] LABS: Chloride 96 mmol/L (98-107); Potassium 3.9 mmoL/L (3.5-5.1); Sodium 135 mmol/L (136-145)
[2022-05-07 11:19] LABS: Anion Gap 15.9 mEq/L (5-15); Blood Urea Nitrogen 43 mg/dl (7-17); Calcium 8.2 mg/dl (8.4-10.2); Carbon Dioxide 27 mmol/L (22.0-30.0); Estimated Glomerular Filt Rate 24 ml/min (>60); GFR (African American) 29 ML/MIN (>60); Glucose 134 mg/dl (74-100)
== END ==
PROVIDERS: PCP Nurse Practitioner Family; Visit Provider Internal Medicine Adolescent Medicine
DX: N17.8 Other acute kidney failure (principal)
CPT/HCPCS: 36415; 80048

== ENCOUNTER → 2022-05-20 09:20 | Outpatient (CLI) | payer MEDICARE, SELFPAY ==
--- NOTE | 2022-05-20 09:26 | XR_ITS ---
FINAL REPORT CLINICAL HISTORY: s/p rt hip pain post op COMPARISON: 05/04/2022 FINDINGS: RIGHT HIP Two views of the right hip including an AP pelvis demonstrate interval postoperative changes from ORIF for right proximal femur fracture. There are moderate degenerative changes of the right hip. The visualized bony structures are well aligned. No soft tissue abnormality is seen. IMPRESSION: Postoperative and degenerative changes of the right hip with no acute bony abnormality. Reviewed, Interpreted and Dictated by Johnny Gimenez III, MD Transcribed by Marquita Interiano Authenticated and [facility]
== END ==
PROVIDERS: PCP Nurse Practitioner Family; Visit Provider Orthopaedic Surgery
DX: Z98.890 Other specified postprocedural states (principal); M25.551 Pain in right hip
CPT/HCPCS: 73502

== ENCOUNTER → 2022-07-01 08:38 | Outpatient (CLI) | payer MEDICARE, SELFPAY ==
--- NOTE | 2022-07-01 08:42 | XR_ITS ---
FINAL REPORT CLINICAL HISTORY: s/p rt hip surgery COMPARISON: May 20, 2022 FINDINGS: RIGHT HIP Two views of the right hip demonstrate postoperative changes from ORIF for proximal femur fracture. There is evidence of interval healing of the fracture. There are moderate degenerative changes of the hip. The visualized bony structures are well aligned. No soft tissue abnormality is seen. IMPRESSION: Postoperative changes from ORIF and interval healing of proximal femur fracture. Reviewed, Interpreted and Dictated by Johnny Gimenez III, MD Transcribed by Marquita Interiano Authenticated and [facility]
== END ==
PROVIDERS: PCP Nurse Practitioner Family; Visit Provider Orthopaedic Surgery
DX: Z98.890 Other specified postprocedural states (principal); M25.551 Pain in right hip
CPT/HCPCS: 73502

== ENCOUNTER 2023-08-21 12:35 | Emergency (ER) | payer MEDICARE, SELFPAY ==
[2023-08-21 13:40] VITALS: BP 151/89; PULSE 101; RESP 19; TEMP 36.8; O2SAT 98; BMI 28.3
[2023-08-21 13:57] VITALS: BP 151/89; PULSE 101; RESP 19; TEMP 36.8; O2SAT 98
--- NOTE | 2023-08-21 14:09 | EXP.UTC ---
Discharge Plan Disposition Patient Disposition: Home, Self-Care Condition: Good Prescriptions Prescriptions: New amoxicillin 500 mg capsule 500 mg PO BID 7 Days Qty: 14 0RF ondansetron 4 mg tablet,disintegrating 4 mg PO Q8H PRN (Reason: nausea and vomiting) Qty: 10 0RF No Action hydrochlorothiazide 25 mg tablet 25 mg PO DAILY 90 Days Qty: 90 1RF atorvastatin 40 mg tablet 40 mg PO DAILY 90 Days Qty: 90 1RF benazepril 10 MG tablet 10 mg PO DAILY aspirin 325 mg Tablet 325 mg PO BID 45 Days Qty: 90 0RF Referrals Follow up/Referrals: Nannette Ann APRN [Primary Care Provider] - See instructions Activity Restrictions/Add. Instructions Additional Instructions/Restrictions: *Monitor Temp, Over the counter Motrin or Tylenol as directed/as needed Tylenol every 4 hours and Motrin every 6 hours (as long as your family doctor has told you that you can take it) for fever or pain. and straight to ER if unable to lower temp less than 101.0 after medication given *Warm salt water gargles may help to soothe the throat *Throat Lozenges? *Warm fluids like tea with honey may help to soothe the throat? *Sleep elevated *Humidifier/Vaporizer *Flonase 2 sprays in each nostril daily but be aware that it may take 2-3 days before you notice improvement *Bromfed may cause drowsiness. Know how it effects you (your child) before driving, caring for small child, or sending your child to school. Not other antihistamines/allergy medications while taking bromfed Your throat swab was sent for culture. Those results are typically sent to your primary care. Be sure to follow up in 2-3 days with your family doctor/primary care physician if no improvement so they can review those result and treat if necessary. If you don?t have a primary care doctor, I recommend you get one but in the mean time, you will have to return to a walk in clinic Follow up IMMEDIATELY for new or worsening symptoms or no Noticeable improvement over the next 48-72 hours. 911 for difficulty breathing or swallowing Clinical Impressions Clinical Impression: Otitis media Qualifiers: Otitis media type: unspecified Laterality: bilateral Qualified Code(s): H66.93 - Otitis media, unspecified, bilateral Instructions Patient Instructions: Middle Ear Infection Discharge ED Provider: Lucy Naidu [facility] HPI General Stated complaint: vomiting, weak, diarrhea Mode of Arrival: Ambulatory Source of Information: Patient Limitations: No Limitations Time Seen by Provider: 08/21/23 14:09 Description of Symptoms (Recalled from Triage Doc. by RN): PATIENT C/O VOMITING, COUGH, DIARRHEA, BODY ACHES, AND BILATERAL EAR PAIN SINCE LAST NIGHT HEENT Symptoms (Recalled from RN notes): Yes Resp Symptoms (Recalled from RN notes): Yes Skin Symptoms (Recalled from RN notes): No MS Symptoms (Recalled from RN notes): No Functional Status (Recalled from RN notes): WNL History of Present Illness Provider Complaint: Patient states that she has been having bilateral ear pain and pressure for several days States that she had the left one cleaned out but the right one feels full States that he had diarrhea about 4-5 days ago but not had any diarrhea in a couple days and she has been feeling achy and having some pressure in her sinuses and last night she vomited x 1 and has had a little nausea but not vomiting today but feels like her nausea is from the pain from her ears Related Data Home Medications Medication Instructions Recorded Confirmed benazepril 10 mg tablet 10 mg PO DAILY Hypertension 11/17/20 08/21/23 Previous Rx's Medication Instructions Recorded aspirin 325 mg tablet 325 mg PO BID 45 days #90 tabs 05/05/22 hydrochlorothiazide 25 mg tablet 25 mg PO DAILY Edema 90 days #90 03/30/23 tabs atorvastatin 40 mg tablet 40 mg PO DAILY Hyperlipidemia 90 04/27/23 days #90 tabs amoxicillin 500 mg capsule 500 mg PO BID 7 days #14 caps 08/21/23 ondansetron 4 mg disintegrating 4 mg PO Q8H PRN nausea and 08/21/23 tablet vomiting #10 tabs Allergies Allergy/AdvReac Type Severity Reaction Status Date / Time No Known Allergies Allergy Verified 07/01/22 09:19 Worker's Comp Is this a Worker's Comp case?: No [facility] Disclaimer: The information contained in this section may have been updated after the patient was seen, as this information can be updated by other users. Medical History History of COVID-19 History of gastroesophageal reflux (GERD) History of hip fracture Pneumonia Surgical History History of cholecystectomy History of hip replacement History of hysterectomy History of left hip replacement Family History Other Family history of diabetes mellitus type II No significant family history Social History Smoking Status: Former smoker alcohol intake: never substance use type: denies use current occupational status: disabled Travel in the last 8 weeks: None ROS Obtained: Yes All systems reviewed & no additional complaints except as documented and Yes Systems reviewed as appropriate & no additional complaints except as documented Constitutional Constitutional: Reports system reviewed and no additional complaints, except as documented, Reports as per HPI, Reports body ache, Denies chills, Denies fever(s) and Denies headache(s) ENT Ears, Nose, Mouth, and Throat: Reports system reviewed and no additional complaints, except as documented, Reports as per HPI, Reports otalgia, Denies headache(s), Reports nasal congestion and Reports sinus pressure Cardiovascular Cardiovascular: Reports system reviewed and no additional complaints, except as documented and Reports as per HPI Respiratory Respiratory: Reports system reviewed and no additional complaints, except as documented and Reports as per HPI Gastrointestinal Gastrointestingal: Reports system reviewed and no additional complaints, except as documented, as per HPI, diarrhea (3-5 days ago none in the last couple of days), nausea and vomiting (once last night) Neurologic Neurologic: Denies headache(s) Physical Exam General General appearance: alert and in no apparent distress ENT ENT exam: Present mucous membranes moist Expanded ENT Exam TM/Canal exam: Left TM: bulging, Right TM: cerumen impaction (removed large amount of was with cruette redness noted ) and Bilateral TM: erythema Respiratory Respiratory exam: Present normal lung sounds bilaterally; Absent respiratory distress or wheezes Cardiovascular Cardiovascular exam: Present tachycardia Abdominal Exam Abdominal exam: Present soft and normal bowel sounds; Absent distention or tenderness Neurological Exam Neurological exam: Present alert, oriented X3 and normal gait Medical Decision Making Oscar Inquiry Pt receiving controlled substance: No Oscar was queried for this patient: No Vital Signs: 08/21/23 13:40 08/21/23 13:57 Temperature 98.2 F 98.2 F Temperature Source Oral Pulse Rate 101 H Pulse Rate [Left Brachial] 101 H Respiratory Rate 19 19 Blood Pressure 151/89 H Blood Pressure [Left Arm] 151/89 H Blood Pressure Mean [Left Arm] 109 Blood Pressure Source [Left Arm] Automatic Cuff Blood Pressure Position [Left Arm] Sitting 02 Sat by Pulse Oximetry 98 Oxygen Delivery Method Room Air Lab Data Lab results reviewed: Yes I reviewed the patient's lab results. Medical Decision Narrative: Medication dosed per pharmacy
[2023-08-21 14:23] LABS: UTC Influenza A Antigen Negative (Negative)
[2023-08-21 14:24] LABS: UTC Influenza B Antigen Negative (Negative)
== END 2023-08-21 14:41 | disposition home or self-care (01) ==
PROVIDERS: Emergency Provider Nurse Practitioner; PCP Nurse Practitioner Family
DX: H66.93 Otitis media, unspecified, bilateral; R09.81 Nasal congestion; R11.2 Nausea with vomiting, unspecified; I10 Essential (primary) hypertension
CPT/HCPCS: 87804; 99204; 99212; G0463

== ENCOUNTER 2024-06-13 17:51 | Emergency (ER) | payer MEDICARE, SELFPAY ==
[2024-06-13] VITALS (11 sets, daily range): BP systolic 118–156; BP diastolic 58–82; PULSE 82–100; RESP 16–18; TEMP 36.6–36.9; O2SAT 93–96; BMI 29.2
--- NOTE | 2024-06-13 18:19 | XR_ITS ---
PROCEDURE INFORMATION: Exam: XR Right Femur Exam date and time: 06/13/2024 6:22 PM Age: 83 years old Clinical indication: Injury or trauma; Fall; Other: Pain; Additional info: Fall, PT had R hip surgery in 2019 TECHNIQUE: Imaging protocol: Radiologic exam of the right femur. Views: 2 views. COMPARISON: CR XR FEMUR RT 2V 05/04/2022 3:12 PM FINDINGS: Bones/joints: Unremarkable. No acute fracture. Soft tissues: Unremarkable. IMPRESSION: No acute findings.
--- NOTE | 2024-06-13 18:19 | XR_ITS ---
PROCEDURE INFORMATION: Exam: XR Right Hip Exam date and time: 06/13/2024 6:22 PM Age: 83 years old Clinical indication: Injury or trauma; Fall; Other: Pain; Additional info: Fall, lateral hip pain TECHNIQUE: Imaging protocol: Radiologic exam of the right hip. Views: 2 or 3 views hip with pelvis when performed. COMPARISON: CR XR HIP RT 2-3V W/PELVIS 07/01/2022 8:47 AM FINDINGS: Bones/joints: Minimally displaced acute fractures of the right superior and inferior pubic rami noted. No other acute fracture. Old healed right hip fracture with lag screw placement and short stem intramedullary artis redemonstrated. Left hip hemiarthroplasty. Soft tissues: Unremarkable. IMPRESSION: Right superior and inferior pubic rami fractures.
--- NOTE | 2024-06-13 18:21 | HMH.EDGENADL ---
Discharge Plan Disposition Patient Disposition: Home, Self-Care Chief Complaint: Extremity Injury, Lower Prescriptions Prescriptions: No Action hydrochlorothiazide 25 mg tablet 25 mg PO DAILY 90 Days Qty: 90 1RF atorvastatin 40 mg tablet 40 mg PO DAILY 90 Days Qty: 90 1RF amoxicillin 500 mg capsule 500 mg PO BID 7 Days Qty: 14 0RF ondansetron 4 mg tablet,disintegrating 4 mg PO Q8H PRN (Reason: nausea and vomiting) Qty: 10 0RF benazepril 10 MG tablet 10 mg PO DAILY aspirin 325 mg Tablet 325 mg PO BID 45 Days Qty: 90 0RF Referrals Follow up/Referrals: Josef Guerrero APRN [Primary Care Provider] - See instructions Clinical Impressions Clinical Impression: Closed fracture of pubic ramus Print Language Print Language: Kazakh Discharge ED Provider: Bob Wahl General Adult HPI General Chief complaint: Extremity Injury, Lower Stated complaint: AO 06-13 right leg pain Time Seen by Provider: 06/13/24 17:58 Mode of Arrival: Wheelchair Source of Information: Patient Limitations: No Limitations Description of Symptoms (Recalled from ER Triage Doc. by RN): c/o right groin/hip pain after falling. pt states that she was making her bed when she got tangled up in the covers causing her to fall on her right hip. Reports that she has a artis in her right hip and is concerned that it messed it up. History of Present Illness HPI narrative: Patient is a 83-year-old female not on anticoagulation with past medical history of traumatic bilateral hip replacement who presents to the emergency department for evaluation of traumatic injury sustained in a fall. Patient was making her bed when she tripped on the sheet falling onto her right hip. She did not strike her right chest, did not strike her head, is not complaining of any other pain other than her hip. She has been able to ambulate since however it hurts when she twists her foot externally causing her to become concerned about her hardware. She presents here for continued evaluation. No other acute complaints at this time Related Data Home Medications ?Medication ?Instructions ?Recorded ?Confirmed benazepril 10 mg tablet 10 mg PO DAILY Hypertension 11/17/20 08/21/23 Previous Rx's ?Medication ?Instructions ?Recorded aspirin 325 mg tablet 325 mg PO BID 45 days #90 tabs 10/19/22 hydrochlorothiazide 25 mg tablet 25 mg PO DAILY Edema 90 days #90 03/30/23 tabs atorvastatin 40 mg tablet 40 mg PO DAILY Hyperlipidemia 90 04/27/23 days #90 tabs amoxicillin 500 mg capsule 500 mg PO BID 7 days #14 caps 08/21/23 ondansetron 4 mg disintegrating 4 mg PO Q8H PRN nausea and 08/21/23 tablet vomiting #10 tabs Allergies Allergy/AdvReac Type Severity Reaction Status Date / Time No Known Allergies Allergy Verified 07/01/22 09:19 [facility] Disclaimer: The information contained in this section may have been updated after the patient was seen, as this information can be updated by other users. Medical History History of COVID-19 History of gastroesophageal reflux (GERD) History of hip fracture Pneumonia Surgical History History of cholecystectomy History of hip replacement History of hysterectomy History of left hip replacement Family History Other Family history of diabetes mellitus type II No significant family history Social History Smoking Status: Former smoker alcohol intake: never substance use type: denies use current occupational status: disabled Other Medical History Have you received the Flu Vaccine for this season: No Have you received the Pneumonia Vaccine: Yes ROS Obtained: Yes Systems reviewed as appropriate & no additional complaints except as documented Physical Exam General General appearance: alert and in no apparent distress Head Head exam: atraumatic and normocephalic Eye Eye exam: Present PERRL and EOMI ENT ENT exam: Present mucous membranes moist Neck Neck exam: Present normal inspection; Absent tenderness Chest Chest inspection: Present normal inspection and symmetric chest wall rise Respiratory Respiratory exam: Present normal lung sounds bilaterally; Absent respiratory distress Cardiovascular Cardiovascular exam: Present regular rate and normal rhythm Abdominal Exam Abdominal exam: Present soft; Absent tenderness Extremities Exam Extremities exam: Present other (Well-healed surgical scar right hip. Mild tenderness over the right lateral hip. No tenderness over the remainder of bilateral upper and lower extremities. 5 out of 5 strength bilateral lower extremities.) Neurological Exam Neurological exam: Present alert Psychiatric Psychiatric exam: Present normal affect Skin Skin exam: Present warm and dry Medical Decision Making Medical Records Screening: Per USPSTF and CDC recommendations, given the prevalence of disease in our region, it is our hospital?s policy to screen for HIV and viral Hepatitis for all patients aged 18 and over and those with ongoing risk factors. Oscar Inquiry Pt receiving controlled substance: No Vital Signs: 06/13/24 17:52 06/13/24 18:00 06/13/24 18:34 Temperature 97.8 F Temperature Source Oral Pulse Rate 90 90 Pulse Rate [Left Radial] 100 H Respiratory Rate 18 Blood Pressure 144/69 H 140/78 Blood Pressure [Right Arm] 156/82 H Blood Pressure Mean [Right Arm] 106 02 Sat by Pulse Oximetry 96 94 L 95 Oxygen Delivery Method Room Air Orders (Tests/Meds): ED MEDICATIONS Discontinued Medications Generic Name Dose Route Start Last Admin Trade Name Freq PRN Reason Stop Dose Admin Acetaminophen 1,000 mg 06/13/24 18:19 06/13/24 18:25 Acetaminophen 500mg Tab PO 06/13/24 18:20 1,000 mg ONCE ONE Administration Methocarbamol 1,000 mg 06/13/24 18:21 06/13/24 18:25 Methocarbamol 500mg Tablet PO 06/13/24 18:22 1,000 mg ONCE ONE Administration ORDERS Category Date Time Status Femur XR right 2 views [XR femur RT 2V] Stat Exams 06/13/24 18:19 Completed Hip XR right minimum 2 views [XR hip RT 2-3V w/pelvis] Exams 06/13/24 18:19 Completed Stat Medical Decision Narrative: In summary patient is a 83-year-old female past medical history described above presents emergency department for evaluation traumatic injury sustained in a fall not on anticoagulants. Patient is hemodynamically stable nontoxic-appearing upon arrival, afebrile. Based on history and physical exam limited trauma survey will be conducted with plain film of the right hip and right femur. Imaging of the head, neck, thorax, arms was considered but given history of physical exam will be deferred at this time. Initial inventions include Robaxin and Tylenol. X-ray of the pelvis informally visualized by me, there appears to be an inferior pubic ramus fracture on the right, hardware appears grossly intact. Formal read shows right-sided superior and inferior pubic rami fracture. The case were discussed with [facility] Dr. Devries who graciously accepted patient for transfer for continued evaluation at this time. Critical Care Critical Care Time Critical Care Time: No
[2024-06-13] MEDS: METHOCARBAMOL 500MG TABLET 1000 MG PO (18:25)
[2024-06-13] MEDS: ACETAMINOPHEN 500MG TAB 1000 MG PO (18:25)
--- NOTE | 2024-06-13 19:46 | PC.NURSE ---
call placed to MD's re transfer to their facility. ED doctor on phone with Dr. Jade at
--- NOTE | 2024-06-13 19:51 | PC.NURSE ---
placed call to RAD for them to [facility] images for this patient to [facility]
--- NOTE | 2024-06-13 20:32 | PC.NURSE ---
Report called to Ellen Blackmon RN- Awaiting transport from EMS
--- NOTE | 2024-06-13 22:54 | PC.NURSE ---
EMS has arrived for transport
== END 2024-06-13 22:56 | disposition home or self-care (01) ==
PROVIDERS: Emergency Provider Emergency Medicine; PCP Nurse Practitioner Family
DX: S32.591A Other specified fracture of right pubis, initial encounter for closed fracture (principal); M25.551 Pain in right hip; W01.0XXA Fall on same level from slipping, tripping and stumbling without subsequent striking against object, initial encounter; Y93.89 Activity, other specified; Y92.003 Bedroom of unspecified non-institutional (private) residence as the place of occurrence of the external cause
CPT/HCPCS: 73502; 73552; 99284